=== PATIENT | female | born 1965 | race Caucasian/White ===

== ENCOUNTER 2019-02-27 07:22 | Inpatient (IN) | payer OTHER ==
[~2019-02-27] VITALS: Ht 154.9 cm; Wt 59.4 kg
--- NOTE | ~2019-02-27 | EKG ---
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
[2019-02-27 07:24] VITALS: BP 127/79
--- NOTE | 2019-02-27 07:45 | NUR ---
PT ATTEMPTING TO VOMIT INTO TRASH CAN, REFUSES BASIN OR BAG. BEING UNCOOPERAIVE.
[2019-02-27 08:09] LABS: HEMOGLOBIN 10.8 g/dl (12.0-16.0); MEAN CELL VOLUME 78.1 fl (81.0-99.0); MEAN CORPUSCULAR HGB 23.4 pg (27.0-31.0); MEAN PLATELET VOLUME 10.2 fl (9.6-12.3); PLATELET COUNT AUTOMATED 299 10*3/uL (130-400); RED BLOOD COUNT 4.61 10*6/uL (4.10-5.10); RED CELL DISTRI WIDTH 21.4 % (0-14.5)
[2019-02-27 08:22] LABS: ACT PARTIAL THROMBO TIME 24.2 SECONDS (20.0-32.1)
--- NOTE | 2019-02-27 08:25 | NUR ---
LYING IN BED RT LATERAL. LIGHTS OUT IN ROOM, RESPS EASY.
[2019-02-27 08:26] LABS: ALBUMIN 4.2 gm/dl (3.1-4.5); ALKALINE PHOSPHATASE 151 U/L (45-117); BUN 16 mg/dl (7-24); CHLORIDE 92 mmol/L (98-107); CREATININE 0.93 mg/dL (0.55-1.02); LIPASE 621 U/L (73-393); POTASSIUM 3.7 mmol/L (3.5-5.1); SGOT/AST 147 IU/L (3-35); SGPT/ALT 80 U/L (12-78); SODIUM 134 mmol/L (136-145); TOTAL PROTEIN 8.5 gm/dL (6.4-8.2)
[2019-02-27 08:32] LABS: PLATELET SUFFICIENCY NORMAL (NORMAL); TOTAL CELLS COUNTED 100 #CELLS
[2019-02-27 08:33] LABS: MICROCYTOSIS SLIGHT; SCHISTOCYTES FEW; TARGET CELLS FEW
--- NOTE | 2019-02-27 08:33 | NUR ---
LA 3.1 DR HINSON NOTIFIED
[2019-02-27 08:36] LABS: BILIRUBIN 1+ (NEGATIVE); BLOOD 2+ (NEGATIVE); CLARITY SL CLOUDY (CLEAR); COLOR YELLOW (YELLOW); GLUCOSE NEGATIVE (NEGATIVE); KETONE 3+ (NEGATIVE); LEUKO ESTERASE 1+ (NEGATIVE); NITRITE NEGATIVE (NEGATIVE); SPECIFIC GRAVITY 1.015 (1.005-1.030); UROBILINOGEN 0.2 E.U./dl (0.2-1.0)
[2019-02-27 08:42] LABS: TROPONIN I < 0.015 ng/ml (<0.045)
--- NOTE | 2019-02-27 08:45 | NUR ---
ETOH 308 DR HINSON NOTIFIED
[2019-02-27 08:49] LABS: BACTERIA 3+; EPITHELIAL CELLS 20-30
--- NOTE | 2019-02-27 09:09 | NUR ---
SLEEPING, RT LATERAL. RESPS EASY. IVF INFUSING.
--- NOTE | 2019-02-27 10:30 | NUR ---
REPEAT LA 2.2 DR HINSON AWARE
--- NOTE | 2019-02-27 10:33 | NUR ---
PT LYING IN BED PRONE, REFUSING TO MOVE TO ALLOW FOR IV ACCESS FOR ANTIBIOTIC. AFTER SEVERAL MINUTES PT STICKS OUT ARM FOR MEDICATION ADMINISTRATION.
--- NOTE | 2019-02-27 10:45 | NUR ---
PT REFUSING SKIN ASSESSMENT AND CARDIAC MONITORING.
[2019-02-27 10:50] VITALS: BP 111/73
--- NOTE | 2019-02-27 10:50 | NUR ---
A 53, admitted to , under the services of DAVONTE Almaguer DO with a diagnosis of UTI, SEVERE SEPSIS, N/V. Chief complaint is MULTIPLE COMPLAINTS. Patient arrived via bed from ER. Monitor applied. Initial assessment completed. Vital signs taken and recorded. DAVONTE ALMAGUER DO notified of admission to the unit. Orders received. See assessment for past medical history, medications and allergies. Patient and/or family oriented to unit. [facility] visitation policy reviewed. Clothing/patient valuable form completed. NEENA CALIX
[2019-02-27 11:45] VITALS: BP 111/73
[2019-02-27 16:00] VITALS: BP 132/79
[2019-02-27 19:38] VITALS: BP 140/61
--- NOTE | 2019-02-27 22:44 | NUR ---
24 HR chart check completed.
[2019-02-28] VITALS: BP 109/62
[2019-02-28 07:07] LABS: BASO # 0.1 10*3/uL (0.0-0.1); BASO % 0.7 % (0.0-1.0); EOS # 0.1 10*3/uL (0.0-0.4); EOS % 0.7 % (1.0-4.0); HEMATOCRIT 28.1 % (37.0-47.0); HEMOGLOBIN 8.2 g/dl (12.0-16.0); LYMPH # 0.5 10*3/uL (1.3-4.4); LYMPH % 4.9 % (27.0-41.0); MEAN CELL VOLUME 80.3 fl (81.0-99.0); MEAN CORPUSCULAR HGB 23.4 pg (27.0-31.0); MEAN CORPUSCULAR HGB CONC 29.2 g/dl (33.0-37.0); MEAN PLATELET VOLUME 10.2 fl (9.6-12.3); MONO # 0.4 10*3/uL (0.1-1.0); MONO % 3.8 % (3.0-9.0); NEUT # 8.2 10*3/uL (2.3-7.9); NEUT % 89.5 % (47.0-73.0); RED CELL DISTRI WIDTH 21.2 % (0-14.5); WHITE BLOOD COUNT 9.1 10*3/uL (4.8-10.8)
[2019-02-28 07:11] LABS: PLATELET COUNT AUTOMATED 139 10*3/uL (130-400)
[2019-02-28 07:22] LABS: BUN 8 mg/dl (7-24); CHLORIDE 98 mmol/L (98-107); CHOLESTEROL 170 mg/dL (<200); POTASSIUM 3.5 mmol/L (3.5-5.1); SODIUM 135 mmol/L (136-145); TRIGLYCERIDES 164 mg/dl (<150); VLDL CHOLESTEROL 33 mg/dL (6-40)
[2019-02-28 07:31] LABS: CREATININE 0.77 mg/dL (0.55-1.02); HDL CHOLESTEROL 83 mg/dl (40-60); LDL CHOLESTEROL 54 mg/dL (9-159); THYROID STIM HORMONE (HS) 0.525 uIU/ml (0.358-4.75)
[2019-02-28 08:00] VITALS: BP 147/76
--- NOTE | 2019-02-28 09:00 | NUR ---
Engraver Jewelry in to talk to patient. Patient states lives at home with friend. There are few steps in the home. Physician: [place] [facility] Pharmacy: [place] [facility] Home health services: none Patient's level of ADLs: INDEPENDENT Patient has working utilities: all working DME: none Follow-up physician's appointment after d/c: will be made by hospitalist nurse director upon discharge Does patient want to access PORTAL?: no Discharge plan discussed with patient, she livs at home with friend, is independent in adls and ambulation, she states she will be discharged to home when medically stable and denies any home needs. JORDIN PETERS
[2019-02-28] MEDS ORDERED: HYDR25T PO (09:34)
--- NOTE | 2019-02-28 10:45 | NUR ---
PHYSICAL THERAPY Physical therapy evaluation attempted. Patient reports she is independent is the room and reports "she is good, she is steady" and has no PT needs at this time. Thank you, Philly Graf, SPT Crissy Cesar,PT,DPT
--- NOTE | 2019-02-28 10:48 | NUR ---
Occupational Therapy evaluation offered this date and screen completed. Patient observed from toilet to bed at independent level. Patient reports that she is independent in all ADLs and mobility and feels her balance is good and that she does not nee any therapy. Discharge OT referral. Thank you. Ioana Campbell OTR/Jeanne
[2019-02-28 12:00] VITALS: BP 128/57
[2019-02-28 15:59] VITALS: BP 126/64
[2019-02-28 20:00] VITALS: BP 114/57
[2019-03-01] VITALS: BP 141/72
[2019-03-01 04:02] LABS: HEPATITIS B SURFACE AG Negative (Negative); HEPATITIS C VIRUS ANTIBODY <0.1 s/co (0.0-0.9)
[2019-03-01 08:00] VITALS: BP 153/73
[2019-03-01] MEDS ORDERED: MACROBID100 M1 PO (08:33)
--- NOTE | 2019-03-01 10:30 | NUR ---
Discharge instructions reviewed with patient/family. Patient receptive and verbalizes understanding. Follow-up care arranged. Written instructions given to patient/family. MANASA OSBORNE
--- NOTE | 2019-03-01 10:47 | NUR ---
Nutritional Support Services Note: Pt is eating 100% of meals, Soft diet as ordered. No other nutrition intervention needed at this time. Will follow as needed. Encourage fluids. Cony Beal Rdn Ld
== END 2019-03-01 10:30 | disposition home or self-care (01) | DRG 872 ==
LOC: ED 07:22 → 4E 10:20 → EDHOLD 10:20 → 4E 10:28
PROVIDERS: Emergency Medicine; ADMIT Internal Medicine
DX: A41.9 Sepsis, unspecified organism (principal); N39.0 Urinary tract infection, site not specified; E87.2 Acidosis; E87.1 Hypo-osmolality and hyponatremia; K70.10 Alcoholic hepatitis without ascites; R65.20 Severe sepsis without septic shock; F10.129 Alcohol abuse with intoxication, unspecified; R74.8 Abnormal levels of other serum enzymes; R74.0 Nonspecific elevation of levels of transaminase and lactic acid dehydrogenase [LDH]; D50.9 Iron deficiency anemia, unspecified; E16.2 Hypoglycemia, unspecified; E87.8 Other disorders of electrolyte and fluid balance, not elsewhere classified; Z80.9 Family history of malignant neoplasm, unspecified; Z79.899 Other long term (current) drug therapy

== ENCOUNTER 2019-03-19 19:19 | Emergency (ER) | payer OTHER ==
[~2019-03-19] VITALS: Wt 51.3 kg
--- NOTE | ~2019-03-19 | EKG ---
[place], [place] ELECTROCARDIOGRAM REPORT NAME: THONG CHADWICK UNIT #: [id number] ROOM: DOCTOR: EPIPHANY DRAFT REPORT BIRTHDATE: [birth year] [facility] Test Date: 2019-03-19 Test Time: 21:45:46 Pat Name: THONG HCADWICK Department: Room: Gender: F Imposer: TASIA : 1965 Requested By: VINI PENALOZA Order Number: [id number] Reading MD: Jennifer Garcia MD Measurements Intervals [place] Rate: 108 P: 71 [place]: 134 QRS: 76 QRSD: 94 T: 247 QT: 350 QTc: 469 Interpretive Statements Sinus tachycardia Left atrial enlargement LVH with secondary repolarization abnormality Compared to ECG 02/27/2019 08:04:17 Prolonged QT interval no longer present Electronically Signed On 03-21-2019 15:55:51 PDT by Jennifer Garcia MD CM:EKGRPT:ELECTROCARDIOGRAM REPORT [id number] VINI CHILEL DRAFT REPORT VINI PENALOZA DO
[~2019-03-19 19:19] MED LIST: HYDR25T PO; MACROBID100 M1 PO
[2019-03-19 20:42] LABS: BASO # 0.1 10*3/uL (0.0-0.1); BASO % 1.2 % (0.0-1.0); EOS % 0.2 % (1.0-4.0); HEMOGLOBIN 10.1 g/dl (12.0-16.0); LYMPH # 0.7 10*3/uL (1.3-4.4); LYMPH % 7.2 % (27.0-41.0); MEAN CELL VOLUME 83.1 fl (81.0-99.0); MEAN CORPUSCULAR HGB 24.7 pg (27.0-31.0); MEAN CORPUSCULAR HGB CONC 29.7 g/dl (33.0-37.0); MEAN PLATELET VOLUME 9.4 fl (9.6-12.3); MONO # 0.7 10*3/uL (0.1-1.0); MONO % 7.3 % (3.0-9.0); NEUT # 8.4 10*3/uL (2.3-7.9); NEUT % 83.7 % (47.0-73.0); PLATELET COUNT AUTOMATED 314 10*3/uL (130-400); RED BLOOD COUNT 4.09 10*6/uL (4.10-5.10); RED CELL DISTRI WIDTH 24.9 % (0-14.5); WHITE BLOOD COUNT 10.1 10*3/uL (4.8-10.8)
[2019-03-19 21:09] LABS: ALBUMIN 3.6 gm/dl (3.1-4.5); ALKALINE PHOSPHATASE 157 U/L (45-117); BUN 9 mg/dl (7-24); CHLORIDE 94 mmol/L (98-107); CREATININE 0.65 mg/dL (0.55-1.02); POTASSIUM 3.2 mmol/L (3.5-5.1); SGOT/AST 112 IU/L (3-35); SGPT/ALT 41 U/L (12-78); SODIUM 137 mmol/L (136-145); TOTAL PROTEIN 7.6 gm/dL (6.4-8.2)
[2019-03-19 21:15] LABS: TROPONIN I < 0.015 ng/ml (<0.045)
[2019-03-20 01:25] LABS: BILIRUBIN 2+ (NEGATIVE); BLOOD NEGATIVE (NEGATIVE); CLARITY SL CLOUDY (CLEAR); COLOR YELLOW (YELLOW); GLUCOSE NEGATIVE (NEGATIVE); KETONE 3+ (NEGATIVE); LEUKO ESTERASE TRACE (NEGATIVE); NITRITE NEGATIVE (NEGATIVE); SPECIFIC GRAVITY 1.025 (1.005-1.030); UROBILINOGEN 0.2 E.U./dl (0.2-1.0)
[2019-03-20 01:28] LABS: URINE AMPHETAMINES < 1000 (1000ng/ml); URINE BARBITURATES < 200 (200ng/ml); URINE BENZODIAZEPINES < 200 (200ng/ml); URINE CANNABINOIDS (THC) < 50 (50ng/ml); URINE COCAINE < 300 (300ng/ml); URINE METHADONE < 300 (300ng/ml); URINE OPIATES < 300 (300ng/ml)
[2019-03-20 01:29] LABS: URINE PHENCYCLIDINE < 25 (25ng/ml)
[2019-03-20 01:32] LABS: EPITHELIAL CELLS 35-40
[2019-03-20 01:33] LABS: BACTERIA 1+
== END 2019-03-20 06:25 | disposition home or self-care (01) ==
LOC: ED 19:19
PROVIDERS: Emergency Medicine
DX: F10.129 Alcohol abuse with intoxication, unspecified (principal); E86.0 Dehydration; I10 Essential (primary) hypertension; J02.9 Acute pharyngitis, unspecified; Z79.2 Long term (current) use of antibiotics; F17.200 Nicotine dependence, unspecified, uncomplicated; Z79.899 Other long term (current) drug therapy; Y90.6 Blood alcohol level of 120-199 mg/100 ml

== ENCOUNTER 2019-04-14 00:22 | Inpatient (IN) | payer OTHER ==
[~2019-04-14] VITALS: Ht 154.9 cm; Wt 47.6 kg
--- NOTE | ~2019-04-14 | EKG ---
[place], [place] ELECTROCARDIOGRAM REPORT NAME: THONG CHADWICK UNIT #: [id number] ROOM: 411 DOCTOR: MICHAEL DRAFT REPORT BIRTHDATE: [birth year] 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
[2019-04-14 01:05] VITALS: BP 141/87
--- NOTE | 2019-04-14 01:05 | NUR ---
PATIENT WAS ADMITTED TO FLOOR AT 0105 PRIOR TO TIME CHANGED BACK TO [place] STANDARD TIME. A 53, admitted to 4E, under the services of ERICK Chiu DO with a diagnosis of COLITIS,NAUSEA, HYPOKALEMIA. Chief complaint is 4 DAYS WITHOUT EATING MUCH DUE TO NAUSEA, COUPLE OF TIMES PATIENT HAD DARK GOOY STOOL PER PT. FOR LAST 2 WEEKS. Patient arrived via stretcher from ER. Monitor applied. Initial assessment completed. Vital signs taken and recorded. ERICK CHIU DO notified of admission to the unit. Orders received. See assessment for past medical history, medications and allergies. Patient and/or family oriented to unit. [address] visitation policy reviewed. Clothing/patient valuable form completed. THONG BRAGG J
--- NOTE | 2019-04-14 01:25 | NUR ---
IV discontinued in left arm. Site symptomatic occluded. Pressure applied. Sterile dressing applied. THONG BRAGG
--- NOTE | 2019-04-14 01:40 | NUR ---
IV started right forearm with #22 angiocath after 1st attempts. The IV site was prepped with Chloraprep. Heparin lock attached. IV solution 0.9ns infusing at 150 cc/hr. Sterile dressing applied. Patient tolerated precedure well. Procedure performed according to [facility] policy & procedure. THONG BRAGG
--- NOTE | 2019-04-14 03:18 | NUR ---
24 HR chart check completed.
--- NOTE | 2019-04-14 04:28 | NUR ---
TYLENOL GIVEN PER ORDER FOR HEADACHE RATED "5"
--- NOTE | 2019-04-14 05:20 | NUR ---
TYLENOL EFFECTIVE FOR HEADACHE PAIN PER PT.
[2019-04-14 07:12] LABS: BUN 4 mg/dl (7-24); CHLORIDE 103 mmol/L (98-107); CREATININE 0.74 mg/dL (0.55-1.02); PHOSPHOROUS 2.4 mg/dL (2.5-4.9); POTASSIUM 3.4 mmol/L (3.5-5.1); SODIUM 137 mmol/L (136-145)
--- NOTE | 2019-04-14 07:32 | NUR ---
DR. HEAD NOTIFIED OF MAGNESIUM LEVEL.
[2019-04-14 08:00] VITALS: BP 148/86
[2019-04-14 12:00] VITALS: BP 119/71
[2019-04-14 16:00] VITALS: BP 108/73
--- NOTE | 2019-04-14 18:24 | NUR ---
PT TOLERATING SOFT DIET.
--- NOTE | 2019-04-14 19:39 | NUR ---
DR POMPA AWARE OF PATIENT C/O RIGHT EYE BEING RED,SWOLLEN, AND DEVELOPING A STYE. STATES TO ORDER A "K PAD".
[2019-04-14 20:00] VITALS: BP 126/63
--- NOTE | 2019-04-14 22:17 | NUR ---
PATIENT REQUESTS KPAD TO BE REMOVED FROM ROOM. STATES "IT IS NOT WORKING AND I AM LEAVING TOMORROW ANYWAYS".
[2019-04-15] VITALS: BP 153/87
--- NOTE | 2019-04-15 03:34 | NUR ---
24 HR chart check completed.
[2019-04-15 08:00] VITALS: BP 142/84
[2019-04-15 08:10] LABS: ALBUMIN 2.7 gm/dl (3.1-4.5); ALKALINE PHOSPHATASE 169 U/L (45-117); BUN 4 mg/dl (7-24); CHLORIDE 101 mmol/L (98-107); POTASSIUM 3.1 mmol/L (3.5-5.1); SGOT/AST 78 IU/L (3-35); SGPT/ALT 33 U/L (12-78); SODIUM 137 mmol/L (136-145); TOTAL PROTEIN 5.9 gm/dL (6.4-8.2)
--- NOTE | 2019-04-15 09:00 | NUR ---
Antenna Rigger in to talk to patient. Patient states lives at home with alone. There are few steps in the home. Physician: [place] Pharmacy: [place] Home health services: none Patient's level of ADLs: INDEPENDENT Patient has working utilities: all working DME: none Follow-up physician's appointment after d/c: will be made by hospitalist nurse director upon discharge Does patient want to access PORTAL?: no Discharge plan discussed with patient, she states she lives at home alone, is independent in adls and ambulation, she states she will return home when medically stable, she declines any home needs at this time. JORDIN PETERS
[2019-04-15] MEDS ORDERED: CIPRO500 MG PO (09:09)
[2019-04-15] MEDS ORDERED: FLAGYL500 MG PO (09:09)
--- NOTE | 2019-04-15 11:35 | NUR ---
Discharge instructions reviewed with patient/family. Patient receptive and verbalizes understanding. Follow-up care arranged. Written instructions given to patient/family. NEENA CALIX
== END 2019-04-15 11:35 | disposition home or self-care (01) | DRG 391 ==
LOC: 4E 00:22 → EDHOLD 00:22 → 4E 00:34
PROVIDERS: Student in an Organized Health Care Education/Training Program; ADMIT Family Medicine
DX: A08.4 Viral intestinal infection, unspecified (principal); E43 Unspecified severe protein-calorie malnutrition; E87.1 Hypo-osmolality and hyponatremia; D50.9 Iron deficiency anemia, unspecified; E87.6 Hypokalemia; F17.210 Nicotine dependence, cigarettes, uncomplicated; E87.8 Other disorders of electrolyte and fluid balance, not elsewhere classified; R74.8 Abnormal levels of other serum enzymes; K76.0 Fatty (change of) liver, not elsewhere classified; I10 Essential (primary) hypertension; R74.0 Nonspecific elevation of levels of transaminase and lactic acid dehydrogenase [LDH]; Z71.6 Tobacco abuse counseling

== ENCOUNTER → 2019-04-17 | Outpatient (CLI) | payer OTHER ==
[~2019-04-17] MED LIST changes: +CIPRO500 MG PO; +FLAGYL500 MG PO
== END | disposition home or self-care (01) ==
LOC: MRI 03-21 11:00
DX: M25.462 Effusion, left knee (principal); M79.89 Other specified soft tissue disorders

== ENCOUNTER 2019-05-11 19:51 | Inpatient (IN) | payer OTHER ==
[~2019-05-11] VITALS: Ht 154.9 cm; Wt 49.2 kg
[2019-05-11 19:54] VITALS: BP 136/70
[2019-05-11 20:36] LABS: HEMATOCRIT 32.4 % (37.0-47.0); HEMOGLOBIN 9.8 g/dl (12.0-16.0); MEAN CELL VOLUME 91.8 fl (81.0-99.0); MEAN CORPUSCULAR HGB 27.8 pg (27.0-31.0); MEAN CORPUSCULAR HGB CONC 30.2 g/dl (33.0-37.0); MEAN PLATELET VOLUME 10.8 fl (9.6-12.3); PLATELET COUNT AUTOMATED 222 10*3/uL (130-400); RED BLOOD COUNT 3.53 10*6/uL (4.10-5.10); WHITE BLOOD COUNT 17.1 10*3/uL (4.8-10.8)
[2019-05-11 20:48] LABS: ACT PARTIAL THROMBO TIME 27.1 SECONDS (20.0-32.1); INTERNATIONAL NORM RATIO 1.1 (2.0-3.5)
[2019-05-11 20:53] LABS: ALBUMIN 3.1 gm/dl (3.1-4.5); ALKALINE PHOSPHATASE 195 U/L (45-117); BUN 7 mg/dl (7-24); CHLORIDE 96 mmol/L (98-107); CREATININE 0.59 mg/dL (0.55-1.02); LIPASE 53 U/L (73-393); POTASSIUM 3.1 mmol/L (3.5-5.1); SGOT/AST 79 IU/L (3-35); SGPT/ALT 30 U/L (12-78); SODIUM 136 mmol/L (136-145); TOTAL PROTEIN 7.5 gm/dL (6.4-8.2)
[2019-05-11 20:55] LABS: TROPONIN I < 0.015 ng/ml (<0.045)
--- NOTE | 2019-05-11 20:57 | NUR ---
LAB CALLED WITH LACTIC ACID 3.9 AND BLOOD GLUCOSE 47. INFORMATION GIVEN DIRECTLY TO DEONDRE JENKINS
[2019-05-11 21:08] LABS: TOTAL CELLS COUNTED 100 #CELLS
[2019-05-11 21:10] LABS: PLATELET SUFFICIENCY NORMAL (NORMAL)
[2019-05-11 22:19] LABS: BILIRUBIN NEGATIVE (NEGATIVE); BLOOD TRACE-INTACT (NEGATIVE); CLARITY CLEAR (CLEAR); COLOR YELLOW (YELLOW); GLUCOSE NEGATIVE (NEGATIVE); KETONE 3+ (NEGATIVE); LEUKO ESTERASE NEGATIVE (NEGATIVE); NITRITE NEGATIVE (NEGATIVE); SPECIFIC GRAVITY 1.015 (1.005-1.030); UROBILINOGEN 0.2 E.U./dl (0.2-1.0)
[2019-05-11 22:30] LABS: EPITHELIAL CELLS 35-40
[2019-05-11 22:31] LABS: RBC 0-2 rbc/hpf (0-2); WBC 0-2 wbc/hpf (0-5)
--- NOTE | 2019-05-11 22:50 | NUR ---
DURING RECTAL EXAM FOR OCCULT BLOOD, A PRESSURE INJURY- BRUSING NOTED TO LOWER BACK RIGHT ABOVE BUTTOCKS.
[2019-05-11 23:30] VITALS: BP 134/80
--- NOTE | 2019-05-11 23:30 | NUR ---
A 54, admitted to , under the services of KALINA Reed DO with a diagnosis of SEVERE SEPSIS, COLITIS, HYPOKALEMIA, HYPOGLYCEMIA. Chief complaint is MULTIPLE COMPLAINTS, N/V/D, HEADACHE. Patient arrived via bed from ER. Monitor applied. Initial assessment completed. Vital signs taken and recorded. KALINA REED DO notified of admission to the unit. Orders received. See assessment for past medical history, medications and allergies. Patient and/or family oriented to unit. [facility] visitation policy reviewed. Clothing/patient valuable form completed. FANTASMA MARSH
--- NOTE | 2019-05-11 23:32 | NUR ---
NOTIFIED OF LACTIC ACID 2.7. NO NEW ORDERS REC'D.
--- NOTE | 2019-05-12 01:10 | NUR ---
CRITICAL LACTIC ACID REPORTED TO DR MENSAH AT THIS TIME. NO NEW ORDERS RECEIVED.
[2019-05-12 03:31] LABS: HEMATOCRIT 26.9 % (37.0-47.0); HEMOGLOBIN 8.3 g/dl (12.0-16.0); MEAN CELL VOLUME 90.3 fl (81.0-99.0); MEAN CORPUSCULAR HGB 27.9 pg (27.0-31.0); MEAN CORPUSCULAR HGB CONC 30.9 g/dl (33.0-37.0); MEAN PLATELET VOLUME 10.2 fl (9.6-12.3); PLATELET COUNT AUTOMATED 162 10*3/uL (130-400); RED BLOOD COUNT 2.98 10*6/uL (4.10-5.10); WHITE BLOOD COUNT 9.3 10*3/uL (4.8-10.8)
[2019-05-12 03:38] LABS: PLATELET SUFFICIENCY NORMAL (NORMAL)
[2019-05-12 03:45] LABS: ALBUMIN 2.6 gm/dl (3.1-4.5); ALKALINE PHOSPHATASE 155 U/L (45-117); BUN 5 mg/dl (7-24); CHLORIDE 100 mmol/L (98-107); CREATININE 0.47 mg/dL (0.55-1.02); POTASSIUM 3.6 mmol/L (3.5-5.1); SGOT/AST 58 IU/L (3-35); SGPT/ALT 22 U/L (12-78); SODIUM 136 mmol/L (136-145); TOTAL PROTEIN 6.1 gm/dL (6.4-8.2)
[2019-05-12 03:47] LABS: PHOSPHOROUS 0.6 mg/dL (2.5-4.9)
--- NOTE | 2019-05-12 03:49 | NUR ---
NOTIFIED DR MENSAH THAT LAB HAS CALLED THIS NURSE WITH CRITICAL PHOSPHORUS LEVEL OF 0.6. PHYSICIAN STATES THAT HE WILL PUT ORDERS IN.
[2019-05-12 03:54] LABS: BASOPHILS 2 % (0-1); TOTAL CELLS COUNTED 100 #CELLS
--- NOTE | 2019-05-12 05:30 | NUR ---
PT RESTING IN BED. RESPIRATIONS UNLABORED ON ROOM AIR. PT DENIES NEEDING ANYTHING AT THIS TIME. IV SITES TO LEFT HAND AND LEFT WRIST ARE PATENT, FLUSHING AND GIVING GOOD BLOOD RETURN. IV POTASSIUM PHOSPHATE INFUSING PER ORDER. WILL CONTINUE TO MONITOR. CALL LIGHT IN REACH.
--- NOTE | 2019-05-12 08:05 | NUR ---
MEDICATED WITH TYLENOL FOR COMPLAINTS OF HEADACHE, AND ZOFRAN FOR COMPLAINTS OF NAUSEA. WILL MONITOR FOR EFFECTIVENESS.
--- NOTE | 2019-05-12 08:10 | NUR ---
BLOOD GLUOCSE RECHECKED PT'S BLOOD GLUCOSE WAS 56 ON AM LABS, FINGER STICK PERFORMED:74. PT ASYMPTOMATIC.
[2019-05-12 08:57] VITALS: BP 166/88
--- NOTE | 2019-05-12 08:58 | NUR ---
SPOKE WITH DR MORGAN REGARDING PT'S BP OF 166/88. ORDER RECEIVED TO RESTART HOME DOSE OF HCTZ.
--- NOTE | 2019-05-12 09:21 | NUR ---
IN TO OFFER PT IV ATIVAN AT THIS TIME, PT IS DAILY DRINKER AND NOTES SHE DOES GET TREMORS AT TIMES. PT DENIES ANY NEEDS, PT RESTING COMFORTABLY AT THIS TIME, STATES EARLIER ZOFRAN HELPED WITH NAUSEA.
[2019-05-12 12:37] VITALS: BP 127/59
--- NOTE | 2019-05-12 13:38 | NUR ---
PT SLEEPING, NO DISTRESS.
[2019-05-12 17:14] VITALS: BP 139/69
[2019-05-12 20:00] VITALS: BP 138/74
[2019-05-13] VITALS: BP 117/67
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
[2019-05-13 07:58] VITALS: BP 142/84
--- NOTE | 2019-05-13 08:09 | NUR ---
PT RESTING IN BED COMFORTABLY, NO COMPLAINTS AT THIS TIME WILL CONTINUE TO MONITOR. ROSA HARVEY SPCC
--- NOTE | 2019-05-13 09:00 | NUR ---
Telesales Supervisor in to talk to patient. Patient states lives at home with alone. There are few steps in the home. [place] Pharmacy[place] Home health services: none Patient's level of ADLs: INDEPENDENT Patient has working utilities: all working DME: none Follow-up physician's appointment after d/c: will be made by hospitalist nurse director upon discharge Does patient want to access PORTAL?: no Discharge plan discussed with patient, she states she lives at home alone she is independent in adls and ambulation, she states she will return home and denies any home needs, case management will follos. JORDIN PETERS
--- NOTE | 2019-05-13 09:41 | NUR ---
DR CROCKETT UPDATED ON NEED TO CONTINUE MONITOR, AND HE WANTS PT LEFT ON THE MONITOR
[2019-05-13 10:47] LABS: ALBUMIN 2.7 gm/dl (3.1-4.5); ALKALINE PHOSPHATASE 183 U/L (45-117); BUN 2 mg/dl (7-24); CHLORIDE 93 mmol/L (98-107); CREATININE 0.85 mg/dL (0.55-1.02); PHOSPHOROUS 1.4 mg/dL (2.5-4.9); POTASSIUM 2.8 mmol/L (3.5-5.1); SGOT/AST 64 IU/L (3-35); SGPT/ALT 21 U/L (12-78); SODIUM 133 mmol/L (136-145); TOTAL PROTEIN 6.4 gm/dL (6.4-8.2)
--- NOTE | 2019-05-13 10:56 | NUR ---
DR ERIC CALLED WITH POTASSIUM
--- NOTE | 2019-05-13 11:25 | NUR ---
1000 PT CONTINUES TO REST IN BED, REFUSING TO GET CLEANED UP AT THE MOMENT. STATES SHE MAY GET UP AFTER LUNCH. ROSA HARVEY SPANNYCC
[2019-05-13 12:00] VITALS: BP 144/85
--- NOTE | 2019-05-13 12:12 | NUR ---
AWAITING POTASSIUM REPLACEMENT ORDERS
--- NOTE | 2019-05-13 12:51 | NUR ---
PT HAD EPISODE OF DIARRHEA, CURRENTLY RELAXING IN BED GETTING READY TO ORDER LUNCH. NOT VOICING ANY COMPLAINTS AT THIS TIME. ROSA MCDONOUGHCC
[2019-05-13 16:00] VITALS: BP 156/94
--- NOTE | 2019-05-13 19:27 | NUR ---
24 HR chart check completed.
[2019-05-13 20:00] VITALS: BP 134/86
--- NOTE | 2019-05-13 21:00 | NUR ---
RESTING IN BED. NO DISTRESS NOTED. RESPIRATIONS EASY. LUNGS DIMINISHED, CLEAR. PULSE OX 96% RA. CALL LIGHT WITHIN REACH. NO VOICED COMPLAINTS
--- NOTE | 2019-05-13 22:50 | NUR ---
MEDICATED WITH RESTORIL AND ATIVAN PER PRN ORDER TO ASSIST WITH SLEEP AND WITHDRAWAL S/S. CALL LIGHT WITHIN REACH. WILL MONITOR
[2019-05-14] VITALS: BP 146/86
--- NOTE | 2019-05-14 00:13 | NUR ---
RESTLESS, CLIMBING OOB. HR ELEVATED. MEDICATED WITH ATIVAN IV PER PRN ORDER. WILL MONITOR
--- NOTE | 2019-05-14 01:00 | NUR ---
RESTING WITH EYES CLOSED
--- NOTE | 2019-05-14 03:00 | NUR ---
AWAKE, RESTLESS. ROAMING IN HALLWAY. 1:1 PROVIDED TO REORIENT PATIENT. ASSISTED TO BED AND POSITIONED FOR COMFORT
--- NOTE | 2019-05-14 06:00 | NUR ---
SITTING AT BEDSIDE, DISORIENTED. ENCOURAGED TO LAY DOWN. CALL LIGHT WITHIN REACH.
[2019-05-14 06:24] LABS: BASO # 0.1 10*3/uL (0.0-0.1); BASO % 0.9 % (0.0-1.0); EOS # 0.2 10*3/uL (0.0-0.4); EOS % 2.9 % (1.0-4.0); HEMATOCRIT 33.4 % (37.0-47.0); HEMOGLOBIN 10.2 g/dl (12.0-16.0); LYMPH % 16.7 % (27.0-41.0); MEAN CELL VOLUME 88.1 fl (81.0-99.0); MEAN CORPUSCULAR HGB 26.9 pg (27.0-31.0); MEAN CORPUSCULAR HGB CONC 30.5 g/dl (33.0-37.0); MEAN PLATELET VOLUME 11.8 fl (9.6-12.3); MONO # 0.6 10*3/uL (0.1-1.0); MONO % 9.4 % (3.0-9.0); NEUT % 68.2 % (47.0-73.0); PLATELET COUNT AUTOMATED 159 10*3/uL (130-400); RED BLOOD COUNT 3.79 10*6/uL (4.10-5.10); RED CELL DISTRI WIDTH 21.2 % (0-14.5); WHITE BLOOD COUNT 5.9 10*3/uL (4.8-10.8)
[2019-05-14 06:46] LABS: ALBUMIN 3.1 gm/dl (3.1-4.5); ALKALINE PHOSPHATASE 218 U/L (45-117); BUN 4 mg/dl (7-24); CHLORIDE 91 mmol/L (98-107); CREATININE 0.46 mg/dL (0.55-1.02); PHOSPHOROUS 1.6 mg/dL (2.5-4.9); SGOT/AST 100 IU/L (3-35); SGPT/ALT 33 U/L (12-78); SODIUM 131 mmol/L (136-145); TOTAL PROTEIN 7.1 gm/dL (6.4-8.2)
[2019-05-14 08:00] VITALS: BP 120/92
--- NOTE | 2019-05-14 08:00 | NUR ---
DR. LEVY AND ROSA FIGURE MODEL AWARE PATIENT SIGNED AMA. PATIENT MADE IT HALF WAY DOWN FLORES AND STAGGERED INTO WALL. RN TOOK PATIENT BACK TO ROOM BECAUSE PATIENT IS WALKING HOME AND SEEMS UNSTEADY. DAUGHTER SHAWNA CALLED BUT THEY DON'T HAVE A RELATIONSHIP DUE TO ALCOHOL ABUSE AND SHE IS AT WORK. DAUGHTER STATED SHE WILL TRY HER GRNADMOTHER.
--- NOTE | 2019-05-14 08:22 | NUR ---
PATIENT AGREEING TO STAY FOR NOW. DR. LEVY AWARE.
--- NOTE | 2019-05-14 08:40 | NUR ---
DR. LEVY AWARE NO IV AND HEART MONITOR OFF. STATED HE WOULD SEE PATIENT BEFORE MAKING A DECISION TO RESTART IV AND IF SHE NEEDS MONITORED.
--- NOTE | 2019-05-14 10:00 | NUR ---
case management visits with patient, patient stated she didn't have any needs at this time, case management will follow
--- NOTE | 2019-05-14 11:26 | NUR ---
OK TO LEAVE IV OUT AND HEART MONITOR OFF.
--- NOTE | 2019-05-14 13:00 | NUR ---
PATIENT WALKED TO DESK AND ASKED TO BE RELEASED. PATIENT HAS STEADY GAIT AND IS AO X 3. PATIENT STATES SHE FEELS BETTER SINCE SHE ATE. DR. LEVY AWARE.
[2019-05-14] MEDS ORDERED: AUGMENTIN 875875 MG PO (13:23)
--- NOTE | 2019-05-14 13:53 | NUR ---
PATIENT DISCHARGED TO HOME.
== END 2019-05-14 13:53 | disposition home or self-care (01) | DRG 871 ==
LOC: ED 19:51 → EDHOLD 22:28 → 4E 22:28
PROVIDERS: Internal Medicine; Nurse Practitioner Family; ADMIT Internal Medicine
DX: A41.9 Sepsis, unspecified organism (principal); E43 Unspecified severe protein-calorie malnutrition; N17.0 Acute kidney failure with tubular necrosis; E87.2 Acidosis; R65.20 Severe sepsis without septic shock; K52.9 Noninfective gastroenteritis and colitis, unspecified; E87.6 Hypokalemia; E16.2 Hypoglycemia, unspecified; K59.00 Constipation, unspecified; F17.210 Nicotine dependence, cigarettes, uncomplicated; E87.8 Other disorders of electrolyte and fluid balance, not elsewhere classified; F10.10 Alcohol abuse, uncomplicated; I10 Essential (primary) hypertension; R74.0 Nonspecific elevation of levels of transaminase and lactic acid dehydrogenase [LDH]; D50.9 Iron deficiency anemia, unspecified; K29.50 Unspecified chronic gastritis without bleeding; K27.9 Peptic ulcer, site unspecified, unspecified as acute or chronic, without hemorrhage or perforation; K76.0 Fatty (change of) liver, not elsewhere classified; D64.9 Anemia, unspecified; E83.39 Other disorders of phosphorus metabolism; Z71.6 Tobacco abuse counseling; Z80.8 Family history of malignant neoplasm of other organs or systems; Z79.899 Other long term (current) drug therapy; Z68.20 Body mass index [BMI] 20.0-20.9, adult

== ENCOUNTER 2019-05-28 17:50 | Inpatient (IN) | payer OTHER ==
[2019-05-28] VITALS (7 sets, daily range): BP systolic 122–163; BP diastolic 70–93
[~2019-05-28] VITALS: Ht 154.9 cm; Wt 52.6 kg
[~2019-05-28 17:50] MED LIST changes: +AUGMENTIN 875875 MG PO
[2019-05-28 19:17] LABS: HEMATOCRIT 29.1 % (37.0-47.0); HEMOGLOBIN 9.2 g/dl (12.0-16.0); MEAN CELL VOLUME 86.9 fl (81.0-99.0); MEAN CORPUSCULAR HGB 27.5 pg (27.0-31.0); MEAN CORPUSCULAR HGB CONC 31.6 g/dl (33.0-37.0); MEAN PLATELET VOLUME 9.7 fl (9.6-12.3); PLATELET COUNT AUTOMATED 582 10*3/uL (130-400); RED BLOOD COUNT 3.35 10*6/uL (4.10-5.10); RED CELL DISTRI WIDTH 21.6 % (0-14.5); WHITE BLOOD COUNT 16.5 10*3/uL (4.8-10.8)
[2019-05-28 19:21] LABS: ALBUMIN 2.7 gm/dl (3.1-4.5); ALKALINE PHOSPHATASE 182 U/L (45-117); BUN 5 mg/dl (7-24); CHLORIDE 100 mmol/L (98-107); CREATININE 0.56 mg/dL (0.55-1.02); LIPASE 21 U/L (73-393); POTASSIUM 2.7 mmol/L (3.5-5.1); SGOT/AST 20 IU/L (3-35); SGPT/ALT 16 U/L (12-78); SODIUM 136 mmol/L (136-145); TOTAL PROTEIN 6.8 gm/dL (6.4-8.2)
[2019-05-28 19:24] LABS: BASOPHILS 1 % (0-1); PLATELET SUFFICIENCY NORMAL (NORMAL); TOTAL CELLS COUNTED 100 #CELLS
[2019-05-28 20:55] LABS: BILIRUBIN NEGATIVE (NEGATIVE); BLOOD NEGATIVE (NEGATIVE); CLARITY CLEAR (CLEAR); COLOR YELLOW (YELLOW); GLUCOSE NEGATIVE (NEGATIVE); KETONE NEGATIVE (NEGATIVE); LEUKO ESTERASE NEGATIVE (NEGATIVE); NITRITE NEGATIVE (NEGATIVE); PH 6.5 (5.0-9.0); UROBILINOGEN 0.2 E.U./dl (0.2-1.0)
[2019-05-29 06:14] LABS: HEMOGLOBIN 8.6 g/dl (12.0-16.0); MEAN CELL VOLUME 88.1 fl (81.0-99.0); MEAN CORPUSCULAR HGB CONC 30.7 g/dl (33.0-37.0); MEAN PLATELET VOLUME 10.3 fl (9.6-12.3); PLATELET COUNT AUTOMATED 472 10*3/uL (130-400); RED BLOOD COUNT 3.18 10*6/uL (4.10-5.10); RED CELL DISTRI WIDTH 21.4 % (0-14.5); WHITE BLOOD COUNT 13.8 10*3/uL (4.8-10.8)
[2019-05-29 06:34] LABS: CHLORIDE 104 mmol/L (98-107); POTASSIUM 2.9 mmol/L (3.5-5.1); SODIUM 138 mmol/L (136-145)
[2019-05-29 06:40] LABS: BUN 3 mg/dl (7-24); CREATININE 0.45 mg/dL (0.55-1.02)
[2019-05-29 07:03] LABS: PLATELET SUFFICIENCY HIGH (NORMAL); POLYCHROMASIA SLIGHT; ROULEAUX SLIGHT; TARGET CELLS FEW; TOTAL CELLS COUNTED 100 #CELLS
[2019-05-29 08:00] VITALS: BP 120/70
--- NOTE | 2019-05-29 08:10 | NUR ---
MEDICATED WITH PRN IV ZOFRAN AND MORPHINE FOR NAUSEA AND ABDOMINAL/LOW BACK PAIN.
--- NOTE | 2019-05-29 08:54 | NUR ---
PRN IV MORPHINE AND ZOFRAN EFFECTIVE, PER PATIENT.
--- NOTE | 2019-05-29 09:00 | NUR ---
Home Office Claim Specialist in to talk to patient. Patient states lives at home with alone. There are few steps in the home. Physician[place] Home health services: none Patient's level of ADLs: INDEPENDENT Patient has working utilities: all working DME: none Follow-up physician's appointment after d/c: will be made by hospitalist nurse director Does patient want to access PORTAL?: no Discharge plan discussed with patient, she lives at home alone, she states she is independent in adls and ambulation, drives, she states she will return home when medically stable and denies any home needs. JORDIN PETERS
[2019-05-29 12:00] VITALS: BP 135/79
--- NOTE | 2019-05-29 12:58 | NUR ---
DR. CARMONA AWARE OF CONSULT, IN TO SEE PATIENT RE: PLAN OF CARE.
[2019-05-29 14:14] LABS: PHOSPHOROUS 1.8 mg/dL (2.5-4.9)
--- NOTE | 2019-05-29 14:19 | NUR ---
DR. CARMONA PHONED WITH MAG/PHOS RESULTS. OBTAINED ORDER TO GIVE 30MMOL KPHOS IV OVER 8 HOURS, DO NOT GIVE 20MEQ PO K-DUR, AND REPEAT PHOS/MAG/BMP IN AM.
--- NOTE | 2019-05-29 14:24 | NUR ---
CORRECTION; DO NOT GIVE THE 40PO K-DUR.
--- NOTE | 2019-05-29 14:51 | NUR ---
MEDICATED WITH PRN IV ZOFRAN AND MORPHINE FOR NAUSEA AND ABDOMINAL PAIN.
--- NOTE | 2019-05-29 15:12 | NUR ---
PHONED DR. CARMONA FOR ORDER FOR GERD DIET, STOP ZOSYN, START IV FLAGYL 500MG Q8HR.
--- NOTE | 2019-05-29 15:17 | NUR ---
PER DR. CARMONA, HE CANNOT DO EGD AND/OR COLO UNTIL NEXT WEEK FOR THE PATIENT.
[2019-05-29 16:00] VITALS: BP 155/71
--- NOTE | 2019-05-29 16:35 | NUR ---
PRN PO NORCO AND ZOFRAN EFFECTIVE, PER PATIENT.
[2019-05-29 20:00] VITALS: BP 142/83
--- NOTE | 2019-05-29 20:05 | NUR ---
PATIENT ASSESSMENT COMPLETED AT THIS TIME WITHOUT INCIDENT. PATIENT DENIES ANY NEEDS AT THIS TIME. PATIENT DENIES CHEST PAIN, DISCOMFORT, OR SHORTNESS OF BREATH AT THIS TIME. CALL LIGHT WITHIN REACH, WILL CONTINUE TO MONITOR.
--- NOTE | 2019-05-29 23:58 | NUR ---
24 HR chart check completed.
[2019-05-30] VITALS: BP 138/88
[2019-05-30 06:40] LABS: BASO # 0.1 10*3/uL (0.0-0.1); BASO % 0.6 % (0.0-1.0); EOS # 0.1 10*3/uL (0.0-0.4); EOS % 1.6 % (1.0-4.0); HEMATOCRIT 29.2 % (37.0-47.0); HEMOGLOBIN 8.8 g/dl (12.0-16.0); LYMPH # 0.8 10*3/uL (1.3-4.4); LYMPH % 9.6 % (27.0-41.0); MEAN CELL VOLUME 89.3 fl (81.0-99.0); MEAN CORPUSCULAR HGB 26.9 pg (27.0-31.0); MEAN CORPUSCULAR HGB CONC 30.1 g/dl (33.0-37.0); MEAN PLATELET VOLUME 10.2 fl (9.6-12.3); MONO # 0.4 10*3/uL (0.1-1.0); MONO % 5.3 % (3.0-9.0); NEUT # 6.7 10*3/uL (2.3-7.9); NEUT % 82.2 % (47.0-73.0); PLATELET COUNT AUTOMATED 373 10*3/uL (130-400); RED BLOOD COUNT 3.27 10*6/uL (4.10-5.10); RED CELL DISTRI WIDTH 21.1 % (0-14.5); WHITE BLOOD COUNT 8.1 10*3/uL (4.8-10.8)
[2019-05-30 06:55] LABS: ALBUMIN 2.6 gm/dl (3.1-4.5); ALKALINE PHOSPHATASE 144 U/L (45-117); BUN 2 mg/dl (7-24); CHLORIDE 104 mmol/L (98-107); PHOSPHOROUS 1.5 mg/dL (2.5-4.9); POTASSIUM 3.4 mmol/L (3.5-5.1); SGOT/AST 21 IU/L (3-35); SGPT/ALT 15 U/L (12-78); SODIUM 137 mmol/L (136-145); TOTAL PROTEIN 6.1 gm/dL (6.4-8.2)
--- NOTE | 2019-05-30 09:00 | NUR ---
case management visits with patient, she will return home when medically stable and denies any home needs
--- NOTE | 2019-05-30 09:15 | NUR ---
ARRIVED ON SHIFT, INTRODUCED TO PATIENT, NO NEEDS VOICED AT THIS TIME. WHITE BOARD UPDATED.
[2019-05-30 12:00] VITALS: BP 147/86
[2019-05-30 16:00] VITALS: BP 151/83
--- NOTE | 2019-05-30 19:22 | NUR ---
Shift chart check completed.
[2019-05-30 20:00] VITALS: BP 159/89
[2019-05-31] VITALS: BP 170/92
[2019-05-31 06:17] LABS: BASO # 0.1 10*3/uL (0.0-0.1); BASO % 1.1 % (0.0-1.0); EOS # 0.2 10*3/uL (0.0-0.4); EOS % 2.5 % (1.0-4.0); HEMATOCRIT 30.6 % (37.0-47.0); HEMOGLOBIN 9.3 g/dl (12.0-16.0); LYMPH % 14.3 % (27.0-41.0); MEAN CORPUSCULAR HGB CONC 30.4 g/dl (33.0-37.0); MEAN PLATELET VOLUME 10.7 fl (9.6-12.3); MONO # 0.6 10*3/uL (0.1-1.0); MONO % 7.8 % (3.0-9.0); NEUT # 5.2 10*3/uL (2.3-7.9); NEUT % 72.8 % (47.0-73.0); PLATELET COUNT AUTOMATED 367 10*3/uL (130-400); RED BLOOD COUNT 3.44 10*6/uL (4.10-5.10); RED CELL DISTRI WIDTH 21.2 % (0-14.5); WHITE BLOOD COUNT 7.2 10*3/uL (4.8-10.8)
[2019-05-31 06:26] LABS: BUN 2 mg/dl (7-24); CHLORIDE 103 mmol/L (98-107); CREATININE 0.41 mg/dL (0.55-1.02); PHOSPHOROUS 1.9 mg/dL (2.5-4.9); POTASSIUM 4.2 mmol/L (3.5-5.1); SODIUM 136 mmol/L (136-145)
--- NOTE | 2019-05-31 06:40 | NUR ---
PT STATED THAT SHE DOES NOT WANT TO RECIEVE ANYMORE IV FLUIDS.
--- NOTE | 2019-05-31 07:20 | NUR ---
ARRIVED ON SHIFT, INTRODUCED TO PATIENT, NO NEEDS VOICED, WHITE BOARD UPDATED.
[2019-05-31 08:00] VITALS: BP 156/97
--- NOTE | 2019-05-31 08:24 | NUR ---
Shift chart check completed.
--- NOTE | 2019-05-31 09:00 | NUR ---
case management visits with patient, she states she is a possible discharge to home today and denies any home needs, case management will follow
[2019-05-31] MEDS ORDERED: ZOFRAN4 MG PO (11:40)
[2019-05-31] MEDS ORDERED: PRINIVIL10 MG PO (11:41)
--- NOTE | 2019-05-31 12:27 | NUR ---
Discharge instructions reviewed with patient. Patient receptive and verbalizes understanding. Follow-up care arranged. Written instructions given to patient. IV removed, patient refused wheel chair. ABBY TURNER
== END 2019-05-31 12:27 | disposition home or self-care (01) | DRG 871 ==
LOC: ED 17:50 → 4E 05-29 00:14 → EDHOLD 05-29 00:14 → 4E 05-29 00:44
PROVIDERS: Internal Medicine; Internal Medicine Gastroenterology; Nurse Practitioner Family; Student in an Organized Health Care Education/Training Program; ADMIT Family Medicine
DX: A41.9 Sepsis, unspecified organism (principal); E43 Unspecified severe protein-calorie malnutrition; K51.00 Ulcerative (chronic) pancolitis without complications; E87.6 Hypokalemia; I10 Essential (primary) hypertension; F17.210 Nicotine dependence, cigarettes, uncomplicated; K27.9 Peptic ulcer, site unspecified, unspecified as acute or chronic, without hemorrhage or perforation; E86.0 Dehydration; K76.0 Fatty (change of) liver, not elsewhere classified; R16.1 Splenomegaly, not elsewhere classified; D64.9 Anemia, unspecified; F10.20 Alcohol dependence, uncomplicated; Y90.9 Presence of alcohol in blood, level not specified; Z68.21 Body mass index [BMI] 21.0-21.9, adult; Z71.6 Tobacco abuse counseling; Z80.9 Family history of malignant neoplasm, unspecified

== ENCOUNTER 2019-07-16 17:51 | Inpatient (IN) | payer OTHER ==
[~2019-07-16] VITALS: Ht 154.9 cm; Wt 48.5 kg
[~2019-07-16 17:51] MED LIST changes: +PRINIVIL10 MG PO; +ZOFRAN4 MG PO
[2019-07-16 17:56] VITALS: BP 101/58
[2019-07-16 20:25] LABS: BASO # 0.1 10*3/uL (0.0-0.1); BASO % 0.6 % (0.0-1.0); EOS # 0.1 10*3/uL (0.0-0.4); EOS % 0.4 % (1.0-4.0); HEMATOCRIT 29.1 % (37.0-47.0); HEMOGLOBIN 8.7 g/dl (12.0-16.0); LYMPH # 0.8 10*3/uL (1.3-4.4); LYMPH % 7.1 % (27.0-41.0); MEAN CELL VOLUME 88.2 fl (81.0-99.0); MEAN CORPUSCULAR HGB 26.4 pg (27.0-31.0); MEAN CORPUSCULAR HGB CONC 29.9 g/dl (33.0-37.0); MEAN PLATELET VOLUME 10.1 fl (9.6-12.3); MONO # 0.7 10*3/uL (0.1-1.0); MONO % 6.5 % (3.0-9.0); NEUT # 9.6 10*3/uL (2.3-7.9); NEUT % 84.6 % (47.0-73.0); PLATELET COUNT AUTOMATED 162 10*3/uL (130-400); RED CELL DISTRI WIDTH 23.9 % (0-14.5); WHITE BLOOD COUNT 11.4 10*3/uL (4.8-10.8)
[2019-07-16 20:31] LABS: COLOR YELLOW (YELLOW)
[2019-07-16 20:32] LABS: BILIRUBIN 3+ (NEGATIVE); BLOOD TRACE-LYSED (NEGATIVE); CLARITY SL CLOUDY (CLEAR); GLUCOSE NEGATIVE (NEGATIVE); KETONE 3+ (NEGATIVE); LEUKO ESTERASE TRACE (NEGATIVE); NITRITE NEGATIVE (NEGATIVE)
[2019-07-16 20:34] LABS: BACTERIA 1+; MUCOUS 1+; RBC 0-2 rbc/hpf (0-2)
[2019-07-16 20:43] LABS: ALBUMIN 3.6 gm/dl (3.1-4.5); ALKALINE PHOSPHATASE 174 U/L (45-117); BUN 9 mg/dl (7-24); CHLORIDE 98 mmol/L (98-107); CREATININE 0.65 mg/dL (0.55-1.02); LIPASE 82 U/L (73-393); POTASSIUM 2.9 mmol/L (3.5-5.1); SGOT/AST 95 IU/L (3-35); SGPT/ALT 38 U/L (12-78); SODIUM 140 mmol/L (136-145); TOTAL PROTEIN 7.2 gm/dL (6.4-8.2)
[2019-07-16 23:00] VITALS: BP 113/56
[2019-07-17] VITALS: BP 113/56
[2019-07-17 06:50] LABS: HEMATOCRIT 27.7 % (37.0-47.0); HEMOGLOBIN 8.1 g/dl (12.0-16.0); MEAN CELL VOLUME 90.2 fl (81.0-99.0); MEAN CORPUSCULAR HGB 26.4 pg (27.0-31.0); MEAN CORPUSCULAR HGB CONC 29.2 g/dl (33.0-37.0); MEAN PLATELET VOLUME 11.1 fl (9.6-12.3); PLATELET COUNT AUTOMATED 132 10*3/uL (130-400); RED BLOOD COUNT 3.07 10*6/uL (4.10-5.10); RED CELL DISTRI WIDTH 23.9 % (0-14.5); WHITE BLOOD COUNT 8.5 10*3/uL (4.8-10.8)
[2019-07-17 07:20] LABS: ACT PARTIAL THROMBO TIME 25.6 SECONDS (20.0-32.1); INTERNATIONAL NORM RATIO 1.1 (2.0-3.5)
[2019-07-17 07:23] LABS: ALBUMIN 3.3 gm/dl (3.1-4.5); BUN 8 mg/dl (7-24); CHLORIDE 98 mmol/L (98-107); POTASSIUM 3.6 mmol/L (3.5-5.1); SGOT/AST 88 IU/L (3-35); SGPT/ALT 33 U/L (12-78); SODIUM 138 mmol/L (136-145)
[2019-07-17 07:32] LABS: ALKALINE PHOSPHATASE 154 U/L (45-117); CHOLESTEROL 194 mg/dL (<200); CREATININE 0.59 mg/dL (0.55-1.02); FREE T4 0.94 ng/dl (0.76-1.46); HDL CHOLESTEROL 74 mg/dl (40-60); LDL CHOLESTEROL 72 mg/dL (9-159); PHOSPHOROUS 1.6 mg/dL (2.5-4.9); THYROID STIM HORMONE (HS) 0.308 uIU/ml (0.358-4.75); TOTAL PROTEIN 6.6 gm/dL (6.4-8.2); TRIGLYCERIDES 239 mg/dl (<150); VLDL CHOLESTEROL 48 mg/dL (6-40)
[2019-07-17 08:00] VITALS: BP 158/98
[2019-07-17 08:10] LABS: BASOPHILS 1 % (0-1); PLATELET SUFFICIENCY NORMAL (NORMAL); POLYCHROMASIA SLIGHT; TOTAL CELLS COUNTED 100 #CELLS
[2019-07-17 08:28] LABS: VITAMIN D, 25-HYDROXY 16.7 ng/mL (30-100)
[2019-07-17 12:00] VITALS: BP 163/72
[2019-07-17 16:00] VITALS: BP 168/98
[2019-07-17 20:00] VITALS: BP 142/81
[2019-07-18 07:10] LABS: BASO % 0.3 % (0.0-1.0); EOS % 0.6 % (1.0-4.0); HEMATOCRIT 25.7 % (37.0-47.0); HEMOGLOBIN 7.8 g/dl (12.0-16.0); LYMPH # 0.5 10*3/uL (1.3-4.4); LYMPH % 6.8 % (27.0-41.0); MEAN CORPUSCULAR HGB CONC 30.4 g/dl (33.0-37.0); MEAN PLATELET VOLUME 12.2 fl (9.6-12.3); MONO # 0.3 10*3/uL (0.1-1.0); NEUT # 5.8 10*3/uL (2.3-7.9); NEUT % 86.3 % (47.0-73.0); PLATELET COUNT AUTOMATED 108 10*3/uL (130-400); RED CELL DISTRI WIDTH 23.1 % (0-14.5); WHITE BLOOD COUNT 6.8 10*3/uL (4.8-10.8)
[2019-07-18 07:27] LABS: MEAN CELL VOLUME 85.7 fl (81.0-99.0)
[2019-07-18 07:41] LABS: BUN 3 mg/dl (7-24); CHLORIDE 94 mmol/L (98-107); POTASSIUM 2.8 mmol/L (3.5-5.1); SGPT/ALT 29 U/L (12-78); SODIUM 132 mmol/L (136-145)
[2019-07-18 07:44] LABS: ALKALINE PHOSPHATASE 140 U/L (45-117); CREATININE 0.52 mg/dL (0.55-1.02); SGOT/AST 47 IU/L (3-35); TOTAL PROTEIN 6.3 gm/dL (6.4-8.2)
[2019-07-18 08:00] VITALS: BP 138/88
[2019-07-18 12:00] VITALS: BP 140/78
[2019-07-18 16:00] VITALS: BP 157/88
[2019-07-18 20:00] VITALS: BP 154/86
[2019-07-19] VITALS: BP 141/91
[2019-07-19 08:00] VITALS: BP 163/94
[2019-07-19 08:01] LABS: BASO % 0.8 % (0.0-1.0); EOS # 0.1 10*3/uL (0.0-0.4); EOS % 1.5 % (1.0-4.0); HEMATOCRIT 27.9 % (37.0-47.0); HEMOGLOBIN 8.5 g/dl (12.0-16.0); LYMPH # 0.6 10*3/uL (1.3-4.4); LYMPH % 15.4 % (27.0-41.0); MEAN CELL VOLUME 87.2 fl (81.0-99.0); MEAN CORPUSCULAR HGB 26.6 pg (27.0-31.0); MEAN CORPUSCULAR HGB CONC 30.5 g/dl (33.0-37.0); MEAN PLATELET VOLUME 12.7 fl (9.6-12.3); MONO # 0.4 10*3/uL (0.1-1.0); MONO % 8.8 % (3.0-9.0); NEUT # 2.9 10*3/uL (2.3-7.9); NEUT % 72.7 % (47.0-73.0); PLATELET COUNT AUTOMATED 126 10*3/uL (130-400); RED CELL DISTRI WIDTH 23.4 % (0-14.5)
[2019-07-19 08:59] LABS: ALBUMIN 3.1 gm/dl (3.1-4.5); ALKALINE PHOSPHATASE 150 U/L (45-117); BUN 2 mg/dl (7-24); CHLORIDE 96 mmol/L (98-107); CREATININE 0.39 mg/dL (0.55-1.02); SGOT/AST 66 IU/L (3-35); SGPT/ALT 28 U/L (12-78); SODIUM 133 mmol/L (136-145); TOTAL PROTEIN 6.6 gm/dL (6.4-8.2)
[2019-07-19 09:06] LABS: POTASSIUM 2.9 mmol/L (3.5-5.1)
[2019-07-19 12:00] VITALS: BP 167/96
[2019-07-19 16:45] VITALS: BP 149/93
[2019-07-19 17:09] LABS: BASO # 0.1 10*3/uL (0.0-0.1); BASO % 1.1 % (0.0-1.0); EOS # 0.1 10*3/uL (0.0-0.4); EOS % 1.3 % (1.0-4.0); LYMPH # 0.7 10*3/uL (1.3-4.4); LYMPH % 16.5 % (27.0-41.0); MEAN CELL VOLUME 85.8 fl (81.0-99.0); MEAN CORPUSCULAR HGB 26.6 pg (27.0-31.0); MEAN PLATELET VOLUME 11.8 fl (9.6-12.3); MONO # 0.5 10*3/uL (0.1-1.0); MONO % 11.1 % (3.0-9.0); NEUT # 3.1 10*3/uL (2.3-7.9); NEUT % 68.9 % (47.0-73.0); PLATELET COUNT AUTOMATED 139 10*3/uL (130-400); RED BLOOD COUNT 3.38 10*6/uL (4.10-5.10); RED CELL DISTRI WIDTH 23.3 % (0-14.5); WHITE BLOOD COUNT 4.5 10*3/uL (4.8-10.8)
[2019-07-19 17:24] LABS: ALBUMIN 3.4 gm/dl (3.1-4.5); ALKALINE PHOSPHATASE 156 U/L (45-117); BUN 2 mg/dl (7-24); CHLORIDE 97 mmol/L (98-107); CREATININE 0.44 mg/dL (0.55-1.02); POTASSIUM 2.9 mmol/L (3.5-5.1); SGOT/AST 91 IU/L (3-35); SGPT/ALT 31 U/L (12-78); SODIUM 134 mmol/L (136-145); TOTAL PROTEIN 6.9 gm/dL (6.4-8.2)
[2019-07-19 20:00] VITALS: BP 110/77
[2019-07-20] VITALS: BP 127/80
[2019-07-20 04:00] VITALS: BP 141/95
[2019-07-20 05:27] LABS: ALBUMIN 3.3 gm/dl (3.1-4.5); ALKALINE PHOSPHATASE 155 U/L (45-117); BUN 3 mg/dl (7-24); CHLORIDE 103 mmol/L (98-107); CREATININE 0.46 mg/dL (0.55-1.02); POTASSIUM 3.2 mmol/L (3.5-5.1); SGOT/AST 83 IU/L (3-35); SGPT/ALT 31 U/L (12-78); SODIUM 136 mmol/L (136-145); TOTAL PROTEIN 6.6 gm/dL (6.4-8.2)
[2019-07-20 06:14] LABS: BASO % 0.8 % (0.0-1.0); EOS # 0.1 10*3/uL (0.0-0.4); EOS % 1.9 % (1.0-4.0); HEMATOCRIT 29.7 % (37.0-47.0); HEMOGLOBIN 8.9 g/dl (12.0-16.0); LYMPH # 0.8 10*3/uL (1.3-4.4); LYMPH % 17.5 % (27.0-41.0); MEAN CELL VOLUME 86.8 fl (81.0-99.0); MEAN PLATELET VOLUME 12.4 fl (9.6-12.3); MONO # 0.5 10*3/uL (0.1-1.0); MONO % 10.7 % (3.0-9.0); NEUT # 3.2 10*3/uL (2.3-7.9); PLATELET COUNT AUTOMATED 117 10*3/uL (130-400); RED BLOOD COUNT 3.42 10*6/uL (4.10-5.10); RED CELL DISTRI WIDTH 23.8 % (0-14.5); WHITE BLOOD COUNT 4.8 10*3/uL (4.8-10.8)
[2019-07-20 08:00] VITALS: BP 148/98
[2019-07-20 10:55] VITALS: BP 152/107
[2019-07-20 16:00] VITALS: BP 136/98
[2019-07-20 19:42] VITALS: BP 132/85
[2019-07-21] VITALS: BP 119/79
[2019-07-21 04:00] VITALS: BP 159/91
[2019-07-21 04:38] LABS: HEMATOCRIT 29.2 % (37.0-47.0); HEMOGLOBIN 8.7 g/dl (12.0-16.0); MEAN CORPUSCULAR HGB 26.5 pg (27.0-31.0); MEAN CORPUSCULAR HGB CONC 29.8 g/dl (33.0-37.0); MEAN PLATELET VOLUME 11.8 fl (9.6-12.3); PLATELET COUNT AUTOMATED 120 10*3/uL (130-400); RED BLOOD COUNT 3.28 10*6/uL (4.10-5.10); RED CELL DISTRI WIDTH 24.1 % (0-14.5); WHITE BLOOD COUNT 4.6 10*3/uL (4.8-10.8)
[2019-07-21 04:54] LABS: ALBUMIN 2.9 gm/dl (3.1-4.5); ALKALINE PHOSPHATASE 143 U/L (45-117); BUN 4 mg/dl (7-24); CHLORIDE 106 mmol/L (98-107); CREATININE 0.41 mg/dL (0.55-1.02); POTASSIUM 3.2 mmol/L (3.5-5.1); SGOT/AST 114 IU/L (3-35); SGPT/ALT 37 U/L (12-78); SODIUM 139 mmol/L (136-145); TOTAL PROTEIN 5.9 gm/dL (6.4-8.2)
[2019-07-21 05:10] LABS: OVALOCYTES FEW; PLATELET SUFFICIENCY LOW (NORMAL); TOTAL CELLS COUNTED 100 #CELLS
[2019-07-21 08:00] VITALS: BP 143/99
[2019-07-21 12:00] VITALS: BP 115/80
[2019-07-21 16:00] VITALS: BP 144/94
[2019-07-21 20:00] VITALS: BP 143/94
[2019-07-22] VITALS: BP 134/80
[2019-07-22 04:00] VITALS: BP 143/100
[2019-07-22 05:11] LABS: HEMATOCRIT 28.9 % (37.0-47.0); HEMOGLOBIN 8.7 g/dl (12.0-16.0); MEAN CORPUSCULAR HGB 27.1 pg (27.0-31.0); MEAN CORPUSCULAR HGB CONC 30.1 g/dl (33.0-37.0); MEAN PLATELET VOLUME 11.7 fl (9.6-12.3); PLATELET COUNT AUTOMATED 144 10*3/uL (130-400); RED BLOOD COUNT 3.21 10*6/uL (4.10-5.10); RED CELL DISTRI WIDTH 25.2 % (0-14.5); WHITE BLOOD COUNT 6.4 10*3/uL (4.8-10.8)
[2019-07-22 05:25] LABS: ALKALINE PHOSPHATASE 199 U/L (45-117); BUN 6 mg/dl (7-24); CHLORIDE 105 mmol/L (98-107); CREATININE 0.44 mg/dL (0.55-1.02); POTASSIUM 3.4 mmol/L (3.5-5.1); SGOT/AST 99 IU/L (3-35); SGPT/ALT 42 U/L (12-78); SODIUM 137 mmol/L (136-145)
[2019-07-22 05:32] LABS: BASOPHILS 1 % (0-1); TOTAL CELLS COUNTED 100 #CELLS
[2019-07-22 05:33] LABS: OVALOCYTES FEW
[2019-07-22 05:34] LABS: BURR CELLS FEW; PLATELET SUFFICIENCY NORMAL (NORMAL)
[2019-07-22 08:00] VITALS: BP 143/100
[2019-07-22 11:32] VITALS: BP 129/84
[2019-07-22] MEDS ORDERED: THIAMINE HCL100 MG PO (11:56)
[2019-07-22] MEDS ORDERED: NATURE'S BLEND F1 MG PO (11:56)
== END 2019-07-22 13:35 | disposition home or self-care (01) | DRG 896 ==
LOC: ED 17:51 → 5E 22:00 → EDHOLD 22:00 → 5E 22:24 → ICCU 07-19 16:35
PROVIDERS: Emergency Medicine; Family Medicine; Hospitalist; Internal Medicine; Internal Medicine Gastroenterology; ADMIT Internal Medicine
DX: F10.221 Alcohol dependence with intoxication delirium (principal); G93.41 Metabolic encephalopathy; K50.019 Crohn's disease of small intestine with unspecified complications; K92.1 Melena; E87.2 Acidosis; E86.0 Dehydration; E87.6 Hypokalemia; K52.9 Noninfective gastroenteritis and colitis, unspecified; R63.4 Abnormal weight loss; K80.20 Calculus of gallbladder without cholecystitis without obstruction; D52.9 Folate deficiency anemia, unspecified; R80.9 Proteinuria, unspecified; R82.4 Acetonuria; R31.9 Hematuria, unspecified; R82.2 Biliuria; R82.71 Bacteriuria; Y90.9 Presence of alcohol in blood, level not specified; F17.210 Nicotine dependence, cigarettes, uncomplicated; I10 Essential (primary) hypertension; K76.0 Fatty (change of) liver, not elsewhere classified; R16.1 Splenomegaly, not elsewhere classified; Z71.6 Tobacco abuse counseling; R56.9 Unspecified convulsions

== ENCOUNTER 2019-08-12 18:31 | Inpatient (IN) | payer OTHER ==
[~2019-08-12] VITALS: Ht 154.9 cm; Wt 49.7 kg
[~2019-08-12 18:31] MED LIST changes: +NATURE'S BLEND F1 MG PO; +THIAMINE HCL100 MG PO
[2019-08-12 18:38] VITALS: BP 152/79
[2019-08-12 20:13] LABS: BASO # 0.1 10*3/uL (0.0-0.1); BASO % 0.5 % (0.0-1.0); EOS % 0.1 % (1.0-4.0); HEMATOCRIT 30.3 % (37.0-47.0); HEMOGLOBIN 9.1 g/dl (12.0-16.0); LYMPH % 6.9 % (27.0-41.0); MEAN CELL VOLUME 84.9 fl (81.0-99.0); MEAN CORPUSCULAR HGB 25.5 pg (27.0-31.0); MONO # 0.7 10*3/uL (0.1-1.0); MONO % 4.6 % (3.0-9.0); NEUT # 12.3 10*3/uL (2.3-7.9); NEUT % 87.3 % (47.0-73.0); PLATELET COUNT AUTOMATED 271 10*3/uL (130-400); RED BLOOD COUNT 3.57 10*6/uL (4.10-5.10); RED CELL DISTRI WIDTH 22.9 % (0-14.5); WHITE BLOOD COUNT 14.1 10*3/uL (4.8-10.8)
[2019-08-12 20:24] LABS: INTERNATIONAL NORM RATIO 1.1 (2.0-3.5)
[2019-08-12 20:29] LABS: ALBUMIN 3.6 gm/dl (3.1-4.5); ALKALINE PHOSPHATASE 157 U/L (45-117); BUN 9 mg/dl (7-24); CHLORIDE 92 mmol/L (98-107); CREATININE 0.73 mg/dL (0.55-1.02); LIPASE 68 U/L (73-393); POTASSIUM 3.4 mmol/L (3.5-5.1); SGOT/AST 57 IU/L (3-35); SGPT/ALT 28 U/L (12-78); SODIUM 133 mmol/L (136-145); TOTAL PROTEIN 7.8 gm/dL (6.4-8.2)
[2019-08-12 20:33] LABS: ETHYL ALCOHOL < 3.0 mg/dl (<3); TROPONIN I < 0.015 ng/ml (<0.045)
[2019-08-12 22:22] LABS: BILIRUBIN NEGATIVE (NEGATIVE); BLOOD NEGATIVE (NEGATIVE); CLARITY SL CLOUDY (CLEAR); COLOR YELLOW (YELLOW); GLUCOSE NEGATIVE (NEGATIVE); KETONE 3+ (NEGATIVE); NITRITE NEGATIVE (NEGATIVE); SPECIFIC GRAVITY 1.015 (1.005-1.030); UROBILINOGEN 0.2 E.U./dl (0.2-1.0)
[2019-08-12 22:23] LABS: LEUKO ESTERASE NEGATIVE (NEGATIVE)
[2019-08-12 22:28] LABS: URINE AMPHETAMINES < 1000 (1000ng/ml); URINE BARBITURATES < 200 (200ng/ml); URINE BENZODIAZEPINES < 200 (200ng/ml); URINE CANNABINOIDS (THC) < 50 (50ng/ml); URINE COCAINE < 300 (300ng/ml); URINE METHADONE < 300 (300ng/ml); URINE OPIATES < 300 (300ng/ml)
[2019-08-12 22:38] LABS: RBC 0-2 rbc/hpf (0-2); WBC 0-2 wbc/hpf (0-5)
[2019-08-12 22:41] LABS: URINE PHENCYCLIDINE < 25 (25ng/ml)
[2019-08-13 00:05] VITALS: BP 122/78
[2019-08-13 00:40] VITALS: BP 154/94
--- NOTE | 2019-08-13 00:40 | NUR ---
A 54, admitted to 4E, under the services of KALINA Reed DO with a diagnosis of CHOLELITHIASIS/DEHYDRATION/ALCOHOLISM/COLITIS/SEPSIS/HYPOKALEMIA. Chief complaint is COLD SYMPTOMS. Patient arrived via stretcher from ER. Monitor applied. Initial assessment completed. Vital signs taken and recorded. KALINA REED DO notified of admission to the unit. Orders received. See assessment for past medical history, medications and allergies. Patient and/or family oriented to unit. visitation policy reviewed. Clothing/patient valuable form completed. MICHAEL DAVIDSON A
--- NOTE | 2019-08-13 01:00 | NUR ---
IV started left hand with #22 angiocath after 1 attempt. The IV site was prepped with Chloraprep. Heparin lock attached. Sterile dressing applied. Patient tolerated precedure well. Procedure performed according to [facility] policy & procedure. MICHAEL DAVIDSON
--- NOTE | 2019-08-13 01:15 | NUR ---
PRN NORCO GIVEN FOR ABDOMINAL PAIN, ZOFRAN FOR NAUSEA, AND SCHEDULED ATIVAN. PATIENT TOLERATED WELL, CALL LIGHT IS WITHIN REACH. WILL MONITOR EFFECT.
--- NOTE | 2019-08-13 05:03 | NUR ---
CHART CHECK COMPLETE.
[2019-08-13 06:17] LABS: BASO # 0.1 10*3/uL (0.0-0.1); BASO % 0.5 % (0.0-1.0); EOS # 0.2 10*3/uL (0.0-0.4); EOS % 1.6 % (1.0-4.0); HEMOGLOBIN 8.2 g/dl (12.0-16.0); LYMPH # 0.9 10*3/uL (1.3-4.4); LYMPH % 9.8 % (27.0-41.0); MEAN CELL VOLUME 86.2 fl (81.0-99.0); MEAN CORPUSCULAR HGB 25.2 pg (27.0-31.0); MEAN CORPUSCULAR HGB CONC 29.3 g/dl (33.0-37.0); MEAN PLATELET VOLUME 11.6 fl (9.6-12.3); MONO # 0.4 10*3/uL (0.1-1.0); MONO % 4.3 % (3.0-9.0); NEUT # 7.8 10*3/uL (2.3-7.9); NEUT % 83.4 % (47.0-73.0); PLATELET COUNT AUTOMATED 193 10*3/uL (130-400); RED BLOOD COUNT 3.25 10*6/uL (4.10-5.10); RED CELL DISTRI WIDTH 22.8 % (0-14.5); WHITE BLOOD COUNT 9.3 10*3/uL (4.8-10.8)
--- NOTE | 2019-08-13 06:39 | NUR ---
CONSULT COMPLETE WITH DR. CARMONA. FULL LIQUID DIET, NPO MIDNIGHT FOR EGD 08/14/2019, REPEAT CBC IN AM, 40MG IV PROTONIX DAILY.
[2019-08-13 06:46] LABS: ALBUMIN 2.8 gm/dl (3.1-4.5); ALKALINE PHOSPHATASE 132 U/L (45-117); BUN 7 mg/dl (7-24); CHLORIDE 100 mmol/L (98-107); CREATININE 0.63 mg/dL (0.55-1.02); PHOSPHOROUS 2.4 mg/dL (2.5-4.9); POTASSIUM 3.3 mmol/L (3.5-5.1); SGOT/AST 38 IU/L (3-35); SGPT/ALT 22 U/L (12-78); SODIUM 134 mmol/L (136-145); TOTAL PROTEIN 6.3 gm/dL (6.4-8.2)
[2019-08-13 08:00] VITALS: BP 138/78
--- NOTE | 2019-08-13 08:00 | NUR ---
PT SITTING UP IN BED. RESP-EASY AND REGULAR. TOLERATED ROUTINE MEDICATIONS, INCLUDING ATIVAN FOR ANXIETY. NO C/O AT THIS TIME. IVF INFUSING WITH NO PROBLEM. CALL LIGHT IN REACH. SEE SHIFT ASSESSMENT.
--- NOTE | 2019-08-13 09:00 | NUR ---
Supervisor Delivery Department in to talk to patient. Patient states lives at home with daughter. There are no steps in the home. Physician: dr perez [place] Home health services: none Patient's level of ADLs: INDEPENDENT Patient has working utilities: all working DME: none Follow-up physician's appointment after d/c: will be made by hospitalist nurse director upon discharge Does patient want to access PORTAL?: no Discharge plan discussed with patient, patient somewhat drowsy at this time, she states she lives at home with he daughter and that she would be returning when medically stable, case management will follow for any needs. JORDIN PETERS
[2019-08-13 12:00] VITALS: BP 142/74
--- NOTE | 2019-08-13 12:00 | NUR ---
SLEEPING IN BED. RESP-EASY AND REGULAR. IVF INFUSING WITH NO PROBLEM. CALL LIGHT IN REACH.
--- NOTE | 2019-08-13 14:44 | NUR ---
CALLED DR. RIOS AWARE PT REQUESTING SOMETHING TO EAT. SHE STATES NOT HAVING NAUSEA OR VOMITING OR ABD PAIN. DR. RIOS WILL LOOK INTO IT.
[2019-08-13 16:00] VITALS: BP 137/67
--- NOTE | 2019-08-13 16:30 | NUR ---
PT RESTING IN BED. TOLERATED ROUTINE MED WITH NO PROBLEM. NO C/O AT THIS TIME. CALL LIGHT IN REACH. SEE SHIFT ASSESSMENT.
[2019-08-13 20:00] VITALS: BP 131/81
--- NOTE | 2019-08-13 20:30 | NUR ---
PT RESTING IN BED. IVF INFUSING WITH NO PROBLEM. NO C/O AT THIS TIME. CALL LIGHT IN REACH. SEE SHIFT ASSESSMENT.
--- NOTE | 2019-08-13 22:00 | NUR ---
PT RESTING IN BED WITH EYES CLOSED. RESP-EASY AND REGULAR. TOLERATING IVF WITH NO PROBLEM. CALL LIGHT IN [facility].
--- NOTE | 2019-08-13 23:40 | NUR ---
PT RESTING IN BED. NO COMPLAINTS AT THIS TIME. ASSESSMENT COMPLETE. RESPIRATIONS EASY AND REGULAR. MADE SURE PT UNDERSTOOD THAT SHE IS NOT TO EAT OR DRINK ANYTHING AFTER MIDNIGHT. PT UNDERSTANDS. CALL LIGHT WITHIN REACH. WILL CONTINUE TO MONITOR.
[2019-08-14] VITALS (8 sets, daily range): BP systolic 108–152; BP diastolic 67–90
--- NOTE | 2019-08-14 07:50 | NUR ---
PT SLEEPING IN BED, AWAKENS EASILY. IVF INFUSING WITH NO PROBLEM. NO C/O AT THIS TIME. CALL LIGHT IN REACH. SEE SHIFT ASSESSMENT.
[2019-08-14 07:56] LABS: BASO # 0.1 10*3/uL (0.0-0.1); BASO % 0.7 % (0.0-1.0); EOS # 0.3 10*3/uL (0.0-0.4); EOS % 3.8 % (1.0-4.0); HEMATOCRIT 29.5 % (37.0-47.0); HEMOGLOBIN 8.9 g/dl (12.0-16.0); LYMPH # 0.7 10*3/uL (1.3-4.4); LYMPH % 9.5 % (27.0-41.0); MEAN CELL VOLUME 84.8 fl (81.0-99.0); MEAN CORPUSCULAR HGB 25.6 pg (27.0-31.0); MEAN CORPUSCULAR HGB CONC 30.2 g/dl (33.0-37.0); MEAN PLATELET VOLUME 10.2 fl (9.6-12.3); MONO # 0.3 10*3/uL (0.1-1.0); MONO % 4.4 % (3.0-9.0); NEUT # 6.1 10*3/uL (2.3-7.9); NEUT % 81.2 % (47.0-73.0); RED BLOOD COUNT 3.48 10*6/uL (4.10-5.10); RED CELL DISTRI WIDTH 22.8 % (0-14.5); WHITE BLOOD COUNT 7.6 10*3/uL (4.8-10.8)
[2019-08-14 07:59] LABS: PLATELET COUNT AUTOMATED 131 10*3/uL (130-400)
--- NOTE | 2019-08-14 08:14 | NUR ---
SURGERY ON THE FLOOR TO TAKE PT FOR PROCEDURE.
[2019-08-14 08:27] LABS: BUN 3 mg/dl (7-24); CHLORIDE 98 mmol/L (98-107); CREATININE 0.52 mg/dL (0.55-1.02); POTASSIUM 2.8 mmol/L (3.5-5.1); SODIUM 136 mmol/L (136-145)
--- NOTE | 2019-08-14 09:00 | NUR ---
case management visits with patient, she will return home with medically stable and denies any home needs, she is scheduled for an egd today
--- NOTE | 2019-08-14 09:14 | NUR ---
DR. FLORIAN MADE AWARE PT POTASSIUM LEVEL THIS AM. HE WILL TAKE CARE OF IT.
--- NOTE | 2019-08-14 09:29 | NUR ---
DR. CARMONA CALLED ORDERS TAKEN AND REVIEWED. MADE DR. CARMONA AWARE OF BW LEVELS FROM YESTERDAY AND TODAY.
--- NOTE | 2019-08-14 10:20 | NUR ---
RESTING IN BED. IVF INFUSING WITHNO PROBLEM. TOLERATED ROUTINE ATIVAN PER ORDER, SEE EMAR. CALL LIGHT IN REACH.
--- NOTE | 2019-08-14 16:00 | NUR ---
RESTING IN BED. RESP-EASY AND REGULAR. IVF INFUSING WITH NO PROBLEM. NO C/O AT THIS TIME. CALL LIGHT IN REACH. SEE SHIFT ASSESSMENT.
--- NOTE | 2019-08-14 20:15 | NUR ---
AWAKENED FOR ROUTINE PO ATIVAN. NO DISTRESS NOTED. NO C/O'S VOICED AT PRESENT TIME. IV FLUIDS CONT.
--- NOTE | 2019-08-15 00:13 | NUR ---
RESTING IN BED WITH EYES CLOSED. APPEARS TO BE SLEEPING.
[2019-08-15 06:07] LABS: BUN 4 mg/dl (7-24); CHLORIDE 99 mmol/L (98-107); CREATININE 0.38 mg/dL (0.55-1.02); POTASSIUM 2.8 mmol/L (3.5-5.1); SODIUM 136 mmol/L (136-145)
--- NOTE | 2019-08-15 06:08 | NUR ---
IV FLUIDS CONT. REMAINS WITHOUT C/O'S PAIN . CONDITION GUARDED.
[2019-08-15 06:11] LABS: BASO % 0.5 % (0.0-1.0); EOS # 0.2 10*3/uL (0.0-0.4); EOS % 3.7 % (1.0-4.0); HEMATOCRIT 30.1 % (37.0-47.0); HEMOGLOBIN 8.9 g/dl (12.0-16.0); LYMPH % 17.6 % (27.0-41.0); MEAN CELL VOLUME 83.4 fl (81.0-99.0); MEAN CORPUSCULAR HGB 24.7 pg (27.0-31.0); MEAN CORPUSCULAR HGB CONC 29.6 g/dl (33.0-37.0); MEAN PLATELET VOLUME 12.1 fl (9.6-12.3); MONO # 0.5 10*3/uL (0.1-1.0); MONO % 9.1 % (3.0-9.0); NEUT # 3.9 10*3/uL (2.3-7.9); NEUT % 68.6 % (47.0-73.0); PLATELET COUNT AUTOMATED 129 10*3/uL (130-400); RED BLOOD COUNT 3.61 10*6/uL (4.10-5.10); RED CELL DISTRI WIDTH 22.9 % (0-14.5); WHITE BLOOD COUNT 5.7 10*3/uL (4.8-10.8)
[2019-08-15 08:00] VITALS: BP 148/70
--- NOTE | 2019-08-15 09:00 | NUR ---
case management visits with patient, she will return home when medically stable and denies any home needs
--- NOTE | 2019-08-15 11:13 | NUR ---
Nutritional Support Services Note: Pt's diet advanced from full liquid to GERD diet. Fluctuating appetite. Receives IV fluids. Will follow if needed. EJ Douglas application development intern
[2019-08-15 12:00] VITALS: BP 146/68
[2019-08-15] MEDS ORDERED: CIPRO250 MG PO (13:18)
[2019-08-15] MEDS ORDERED: FLAGYL250 MG PO (13:18)
[2019-08-15 14:02] LABS: BUN 4 mg/dl (7-24); CHLORIDE 99 mmol/L (98-107); CREATININE 0.49 mg/dL (0.55-1.02); POTASSIUM 3.3 mmol/L (3.5-5.1); SODIUM 134 mmol/L (136-145)
--- NOTE | 2019-08-15 15:10 | NUR ---
Discharge instructions reviewed with patient/family. Patient receptive and verbalizes understanding. Follow-up care arranged. Written instructions given to patient/family. MAE HINTON
== END 2019-08-15 15:16 | disposition home or self-care (01) | DRG 872 ==
LOC: ED 18:31 → EDHOLD 23:30 → 4E 23:30
PROVIDERS: Internal Medicine; Physician Assistant; Student in an Organized Health Care Education/Training Program; ADMIT Internal Medicine
PROC: 0DB68ZX Excision of Stomach, Via Natural or Artificial Opening Endoscopic, Diagnostic (ICD-10-PCS; principal; 2019-08-14)
DX: A41.9 Sepsis, unspecified organism (principal); F10.231 Alcohol dependence with withdrawal delirium; K51.00 Ulcerative (chronic) pancolitis without complications; K92.1 Melena; E87.1 Hypo-osmolality and hyponatremia; E86.0 Dehydration; E87.6 Hypokalemia; E83.42 Hypomagnesemia; E16.2 Hypoglycemia, unspecified; E87.8 Other disorders of electrolyte and fluid balance, not elsewhere classified; R82.4 Acetonuria; K80.20 Calculus of gallbladder without cholecystitis without obstruction; F17.210 Nicotine dependence, cigarettes, uncomplicated; I10 Essential (primary) hypertension; K27.9 Peptic ulcer, site unspecified, unspecified as acute or chronic, without hemorrhage or perforation; K76.0 Fatty (change of) liver, not elsewhere classified; R16.1 Splenomegaly, not elsewhere classified; D64.9 Anemia, unspecified; R16.0 Hepatomegaly, not elsewhere classified; K29.70 Gastritis, unspecified, without bleeding; K21.9 Gastro-esophageal reflux disease without esophagitis; R56.9 Unspecified convulsions; Z71.6 Tobacco abuse counseling; Z79.899 Other long term (current) drug therapy; Z80.9 Family history of malignant neoplasm, unspecified

== ENCOUNTER 2019-08-22 09:35 | Inpatient (IN) | payer OTHER ==
[~2019-08-22] VITALS: Ht 154.9 cm; Wt 50.0 kg
[~2019-08-22 09:35] MED LIST changes: +CIPRO250 MG PO; +FLAGYL250 MG PO
[2019-08-22 09:41] VITALS: BP 162/108
[2019-08-22 11:21] LABS: ALBUMIN 3.2 gm/dl (3.1-4.5); ALKALINE PHOSPHATASE 154 U/L (45-117); BUN 4 mg/dl (7-24); CHLORIDE 99 mmol/L (98-107); CREATININE 0.44 mg/dL (0.55-1.02); LIPASE 37 U/L (73-393); POTASSIUM 2.6 mmol/L (3.5-5.1); SGOT/AST 25 IU/L (3-35); SGPT/ALT 20 U/L (12-78); SODIUM 137 mmol/L (136-145); TOTAL PROTEIN 7.1 gm/dL (6.4-8.2)
[2019-08-22 11:42] LABS: BASO # 0.1 10*3/uL (0.0-0.1); BASO % 0.4 % (0.0-1.0); EOS % 0.3 % (1.0-4.0); HEMATOCRIT 29.8 % (37.0-47.0); HEMOGLOBIN 9.3 g/dl (12.0-16.0); LYMPH # 0.8 10*3/uL (1.3-4.4); LYMPH % 5.4 % (27.0-41.0); MEAN CELL VOLUME 82.3 fl (81.0-99.0); MEAN CORPUSCULAR HGB 25.7 pg (27.0-31.0); MEAN CORPUSCULAR HGB CONC 31.2 g/dl (33.0-37.0); MEAN PLATELET VOLUME 10.9 fl (9.6-12.3); MONO # 0.9 10*3/uL (0.1-1.0); MONO % 6.7 % (3.0-9.0); NEUT # 12.1 10*3/uL (2.3-7.9); NEUT % 86.5 % (47.0-73.0); PLATELET COUNT AUTOMATED 374 10*3/uL (130-400); RED BLOOD COUNT 3.62 10*6/uL (4.10-5.10); RED CELL DISTRI WIDTH 24.6 % (0-14.5)
[2019-08-22 12:19] VITALS: BP 137/85
--- NOTE | 2019-08-22 14:52 | NUR ---
PT IS IN ULTRASOUND.
--- NOTE | 2019-08-22 15:30 | NUR ---
A 54, admitted to , under the services of MEAGAN Chery DO with a diagnosis of COLITIS, SEPSIS. Chief complaint is ABDOMINAL CRAMPING, DIARRHEA. Patient arrived via bed from ER. Monitor applied. Initial assessment completed. Vital signs taken and recorded. MEAGAN CHERY DO notified of admission to the unit. Orders received. See assessment for past medical history, medications and allergies. Patient and/or family oriented to unit. [facility] visitation policy reviewed. Clothing/patient valuable form completed. BETH MURRIETA
[2019-08-22 16:00] VITALS: BP 178/100
[2019-08-22 16:04] LABS: BILIRUBIN NEGATIVE (NEGATIVE); BLOOD NEGATIVE (NEGATIVE); CLARITY CLEAR (CLEAR); COLOR STRAW (YELLOW); GLUCOSE NEGATIVE (NEGATIVE); KETONE NEGATIVE (NEGATIVE); LEUKO ESTERASE NEGATIVE (NEGATIVE); NITRITE NEGATIVE (NEGATIVE); SPECIFIC GRAVITY 1.005 (1.005-1.030); UROBILINOGEN 0.2 E.U./dl (0.2-1.0)
[2019-08-22 16:10] LABS: EPITHELIAL CELLS 0-2
--- NOTE | 2019-08-22 17:42 | NUR ---
NOTIFIED OF + STOOL OCCULT.
[2019-08-22 20:00] VITALS: BP 158/84
--- NOTE | 2019-08-22 22:28 | NUR ---
24 HOUR CHART CHECK COMPLETE.
[2019-08-23] VITALS (9 sets, daily range): BP systolic 113–163; BP diastolic 66–100
--- NOTE | 2019-08-23 05:38 | NUR ---
SPOKE WITH ALPESH FROM LAB, STATES TO D/C ORDER FOR FECCAL WBC AT THIS TIME AND REORDER THE LAB ONCE THE STOOL IS COLLECTED. PT IS RECEIVING COLO PREP AT THIS TIME, WILL WAIT UNTIL AFTER PROCEDURE TO COLLECT SPECIMEN. ALPESH ALSO ASKED THE LAB PROFESSOR OF FOREST PLANNING ABOUT THE CDIFF SPECIMEN AND SHE STATES TO COLLECT THAT AFTER THE PROCEDURE WELL.
--- NOTE | 2019-08-23 06:06 | NUR ---
FLEETS ENEMA ADMINISTERED AT THIS TIME, & PT DID NOT RUN CLEAR. TWO PASSES OF TAP WATER ENEMA WERE ADMINISTERED FOLLOWING & PT WAS CLEAR WITHOUT ANY FLECKS OF STOOL PRESENT. SURGERY PACKET ON CHART.
[2019-08-23 06:23] LABS: ALBUMIN 2.6 gm/dl (3.1-4.5); ALKALINE PHOSPHATASE 124 U/L (45-117); BUN 2 mg/dl (7-24); CHLORIDE 107 mmol/L (98-107); CREATININE 0.38 mg/dL (0.55-1.02); PHOSPHOROUS 2.9 mg/dL (2.5-4.9); POTASSIUM 3.1 mmol/L (3.5-5.1); SGOT/AST 18 IU/L (3-35); SGPT/ALT 14 U/L (12-78); SODIUM 141 mmol/L (136-145); TOTAL PROTEIN 5.9 gm/dL (6.4-8.2)
[2019-08-23 06:24] LABS: ACT PARTIAL THROMBO TIME 25.9 SECONDS (20.0-32.1); INTERNATIONAL NORM RATIO 1.2 (2.0-3.5)
--- NOTE | 2019-08-23 06:35 | NUR ---
DR POMPA NOTIFIED OF CRITICAL MAG OF 0.9 AND DECREASED POTASSIUM OF 3.1.
--- NOTE | 2019-08-23 07:36 | NUR ---
DR CARMONA NOTIFIED OF CRITICAL MAGNESIUM 0.9, LOW POTASSIUM 3.1, INR 1.2, PROTIME 13.7, AND APTT 25.9. STATES TO GIVE THE MAGNESIUM RUN ORDERED STAT, EXPLAINED THAT I WAS WAITING FOR THE PHARMACY TO DROP IT OFF. SUPPLEMENTAL POTASSIUM 40MEQ ADMINISTERED ALREADY. DR CARMONA STATES THAT THE INR, APTT, AND PROTIME ARE FINE AT THIS TIME. CALLED PHARMACY AND THEY STATED THAT SOMEONE WILL BE RUNNING THE MAG UP MOMENTARILY.
[2019-08-23 07:43] LABS: BASO # 0.1 10*3/uL (0.0-0.1); BASO % 0.8 % (0.0-1.0); EOS # 0.1 10*3/uL (0.0-0.4); EOS % 2.1 % (1.0-4.0); HEMATOCRIT 29.3 % (37.0-47.0); HEMOGLOBIN 8.6 g/dl (12.0-16.0); LYMPH # 1.1 10*3/uL (1.3-4.4); LYMPH % 16.7 % (27.0-41.0); MEAN CORPUSCULAR HGB 25.2 pg (27.0-31.0); MEAN CORPUSCULAR HGB CONC 29.4 g/dl (33.0-37.0); MEAN PLATELET VOLUME 11.5 fl (9.6-12.3); MONO # 0.6 10*3/uL (0.1-1.0); MONO % 8.7 % (3.0-9.0); NEUT # 4.7 10*3/uL (2.3-7.9); NEUT % 71.1 % (47.0-73.0); PLATELET COUNT AUTOMATED 344 10*3/uL (130-400); RED BLOOD COUNT 3.41 10*6/uL (4.10-5.10); RED CELL DISTRI WIDTH 24.6 % (0-14.5); WHITE BLOOD COUNT 6.6 10*3/uL (4.8-10.8)
[2019-08-23 07:46] LABS: MEAN CELL VOLUME 85.9 fl (81.0-99.0)
--- NOTE | 2019-08-23 09:00 | NUR ---
Manager Of Sustainability in to talk to patient. Patient states lives at home with a friend. There are 0 steps in the home. Physician: [facility] in [place] [facility] Home health services: none Patient's level of ADLs: INDEPENDENT Patient has working utilities: yes DME: none Follow-up physician's appointment after d/c: will be made by the hospitalist nurse director upon discharge Does patient want to access PORTAL?: no Discharge plan discussed with patient. She states she is living with a friend. She is independent in her ADLs and ambulation. She is drowsy. Discussed home health care services and she denies any home needs. When medically stable she will be discharged to home. She is unsure of who will provide transportation at this time on discharge. BINA FUNES
--- NOTE | 2019-08-23 18:04 | NUR ---
DR. YA NOTIFIED OF CONSULT.
[2019-08-24] VITALS: BP 146/85
--- NOTE | 2019-08-24 01:56 | NUR ---
24 HOUR CHART CHECK COMPLETE.
[2019-08-24 02:01] VITALS: BP 146/85
[2019-08-24 07:00] LABS: BASO # 0.1 10*3/uL (0.0-0.1); BASO % 1.3 % (0.0-1.0); EOS # 0.2 10*3/uL (0.0-0.4); EOS % 2.9 % (1.0-4.0); HEMATOCRIT 27.7 % (37.0-47.0); HEMOGLOBIN 8.2 g/dl (12.0-16.0); LYMPH # 0.9 10*3/uL (1.3-4.4); LYMPH % 16.1 % (27.0-41.0); MEAN CELL VOLUME 85.5 fl (81.0-99.0); MEAN CORPUSCULAR HGB 25.3 pg (27.0-31.0); MEAN CORPUSCULAR HGB CONC 29.6 g/dl (33.0-37.0); MEAN PLATELET VOLUME 11.2 fl (9.6-12.3); MONO # 0.4 10*3/uL (0.1-1.0); MONO % 7.3 % (3.0-9.0); NEUT % 71.1 % (47.0-73.0); PLATELET COUNT AUTOMATED 342 10*3/uL (130-400); RED BLOOD COUNT 3.24 10*6/uL (4.10-5.10); RED CELL DISTRI WIDTH 23.8 % (0-14.5); WHITE BLOOD COUNT 5.6 10*3/uL (4.8-10.8)
[2019-08-24 07:13] LABS: ALBUMIN 2.6 gm/dl (3.1-4.5); ALKALINE PHOSPHATASE 132 U/L (45-117); BUN 5 mg/dl (7-24); CHLORIDE 105 mmol/L (98-107); CREATININE 0.39 mg/dL (0.55-1.02); POTASSIUM 3.2 mmol/L (3.5-5.1); SGOT/AST 27 IU/L (3-35); SGPT/ALT 19 U/L (12-78); SODIUM 137 mmol/L (136-145)
[2019-08-24 12:00] VITALS: BP 145/78
[2019-08-24] MEDS ORDERED: FLAGYL500 MG PO (12:31)
[2019-08-24] MEDS ORDERED: CIPRO500 MG PO (12:31)
--- NOTE | 2019-08-24 16:53 | NUR ---
[facility] Discharge instructions reviewed with patient/family. Patient receptive and verbalizes understanding. Follow-up care arranged. Written instructions given to patient/family. SAGAR HURTADO
== END 2019-08-24 16:53 | disposition home or self-care (01) | DRG 872 ==
LOC: ED 09:35 → 4E 14:07 → EDHOLD 14:07 → 4E 14:23
PROVIDERS: Internal Medicine; Physician Assistant; Student in an Organized Health Care Education/Training Program; ADMIT Emergency Medicine
PROC: 0DBL8ZZ Excision of Transverse Colon, Via Natural or Artificial Opening Endoscopic (ICD-10-PCS; principal; 2019-08-23)
DX: A41.9 Sepsis, unspecified organism (principal); K80.10 Calculus of gallbladder with chronic cholecystitis without obstruction; F10.239 Alcohol dependence with withdrawal, unspecified; K52.9 Noninfective gastroenteritis and colitis, unspecified; D72.9 Disorder of white blood cells, unspecified; D72.810 Lymphocytopenia; K76.0 Fatty (change of) liver, not elsewhere classified; E87.6 Hypokalemia; R19.5 Other fecal abnormalities; R74.8 Abnormal levels of other serum enzymes; K63.5 Polyp of colon; F17.210 Nicotine dependence, cigarettes, uncomplicated; I10 Essential (primary) hypertension; Z80.8 Family history of malignant neoplasm of other organs or systems; Z71.6 Tobacco abuse counseling; Z87.11 Personal history of peptic ulcer disease; Z79.899 Other long term (current) drug therapy